=== PATIENT | male | born 1960 | race Caucasian/White ===

== ENCOUNTER 2016-07-08 16:14 | Inpatient (IN) | payer MEDICARE ==
[~2016-07-08] VITALS: Ht 190.5 cm; Wt 184.5 kg
[2016-07-08 16:53] VITALS: Ht 190.5 cm; Wt 184.5 kg
[2016-07-08] MEDS ORDERED: INSU200I SQ (17:06)
[2016-07-08 17:10] VITALS: BP 107/56; RESP 18
--- NOTE | 2016-07-08 19:14 | HP ---
Date/Time of Note Date/Time of Note DATE: 07/08/16 TIME: 19:02 Assessment/Plan VTE Prophylaxis VTE Prophylaxis Intervention: heparin Lines/Catheters IV Catheter Type (from [facility]): Saline Lock Assessment/Plan Problems: (1) Morbid obesity due to excess calories Status: Chronic Comment: Patient has been on and forced weight loss protocol and as he reports he is lost 70 pounds of weight. He had been working out rather extensively which may be how he got a callus on the foot. Regardless we will continue to encourage and assist this rather positive behavior. Please note there is a social issue about finances in this gentleman's family (2) Diabetic foot ulcer associated with type 2 diabetes mellitus Status: Acute Comment: This is an acute finding. Has been seen by Dr. Carrillo and will work toward doing a debridement on the biopsy. We will have ID make sure that we got the correct antibiotics going and get him out of the hospital on an outpatient regimen as soon as possible. Qualifiers: Laterality: right Qualified Code: E11.621 - Diabetic ulcer of right foot associated with type 2 diabetes mellitus (3) End-stage renal disease on hemodialysis Status: Chronic Comment: I have notified his php programmer of his admission so that we do not miss any of the scheduled dates for dialysis (4) DM (diabetes mellitus), type 2 with renal complications Status: Chronic Comment: Noted. The patient has not been able to afford his insulins due to the finances as well as the cost. And then try and work with him using a somewhat antique regimen using plain regular and NPH. Due to the change dynamics of medication digestion and clearance due to the end-stage renal disease I should be able to do this. Please note that the reason I am doing this is strictly on the basis of the finances of him being able to afford this Qualifiers: Diabetes mellitus complication detail: with chronic kidney disease Diabetes mellitus intermediate project manager insulin use: with retirement use Chronic kidney disease stage: on chronic dialysis Qualified Code: E11.22 - Type 2 diabetes mellitus with chronic kidney disease on chronic dialysis, with long-term current use of insulin HPI/ROS Admit Date/Time Admit Date/Time Jul 08, 2016 at 16:25 Hx of Present Illness Charming 56-year-old male patient of Dr. Esparza, with end- stage renal disease on hemodialysis 4 days a week; who developed a foot wound. This had been being treated as an outpatient however it became more worrisome looking and he was seen at the [facility] today. There he had a long sinus tract and because this he is admitted for debridement and excision with possible bone biopsy to rule out osteomyelitis. He did receive a dosage of vancomycin today during dialysis. 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 lives with spouse and 3 children and granddaughter Alcohol Use: none Smoking Status: Never smoker Drug Use: none Exam/Review of Systems Vital Signs Vitals Vital Signs Date Time Temp Pulse Resp B/P Pulse Ox O2 Delivery O2 Flow Rate FiO2 07/08/16 17:10 98.8 82 18 107/56 97 Exam Constitutional: alert, oriented Neck: non-tender, supple Respiratory: clear to auscultation, normal air movement Cardiovascular: nl pulses, regular rate and rhythm Gastrointestinal: nl liver, spleen, non-tender, soft Extremities: normal pulses, other (Wound to the leg) Medications Medications Current Medications Miscellaneous Information (* Miscellaneous Pharmacy Order) HYPOGLYCEMIA PROTOCOL w... ONCE ONCE XX ; Start 07/08/16 at 18:30; Stop 07/08/16 at 18:31; Status UNV Miscellaneous Information (* Miscellaneous Pharmacy Order) Discontinue Glyburide , Glipizide,... ONCE ONCE XX ; Start 07/08/16 at 18:30; Stop 07/08/16 at 18:31 ; Status UNV Miscellaneous Information (* Miscellaneous Pharmacy Order) Discontinue all previ... ONCE ONCE XX ; Start 07/08/16 at 18:30; Stop 07/08/16 at 18:31; Status UNV Diagnostic Test (Pha) (Accucheck) 1 ea XX ; Start 07/09/16 at 02:00; Status UNV Diagnostic Test (Pha) (Accucheck) 1 ea 02 XX ; Start 07/09/16 at 02:00; Status UNV Insulin Human NPH 8 unit 8 unit HS SC ; Start 07/08/16 at 21:00; Status UNV Piperacillin Sod/ Tazobactam Sod (Zosyn 2.25gm/ 50ml (Pmx)) 50 ml @ 100 mls/hr Q8 IVPB ; Start 07/08/16 at 22:00; Status UNV LORIN BARAHONA MD Jul 08, 2016 19:14
[2016-07-08 19:22] LABS: ALBUMIN 4.2 g/dl (3.3-4.9)
[2016-07-08 19:23] LABS: POTASSIUM 4.9 mmol/L (3.5-5.1)
[2016-07-08 19:24] LABS: BASOPHIL # 0.1 10^3/ul (0.0-0.1); BASOPHILS % 0.5 % (0.0-2.0); EOSINOPHILS # 0.1 10^3/ul (0.0-0.5); EOSINOPHILS % 0.7 % (0.0-7.0); HEMATOCRIT 34.7 % (42.0-52.0); HEMOGLOBIN 11.8 g/dl (14.0-18.0); INR 1.1; LYMPHOCYTES # 1.3 10^3/ul (0.8-2.9); LYMPHOCYTES % 10.1 % (15.0-51.0); MEAN CORPUSCULAR HEMOGLOBIN 32.3 pg (29.0-33.0); MEAN CORPUSCULAR HGB CONC 33.9 g/dl (32.0-37.0); MEAN CORPUSCULAR VOLUME 95.2 fl (82.0-101.0); MEAN PLATELET VOLUME 8.6 fl (7.4-10.4); MONOCYTE # 0.8 10^3/ul (0.3-0.9); MONOCYTES % 5.8 % (0.0-11.0); NEUTROPHIL # 11.1 10^3/ul (1.6-7.5); NEUTROPHILS % 82.9 % (39.0-77.0); PLATELET COUNT 259 10^3/UL (140-440); PROTIME 14.2 Sec (12.2-14.2); PT RATIO 1.1; RED BLOOD COUNT 3.65 10^6/ul (4.70-6.10); RED CELL DISTRIBUTION WIDTH 14.4 % (11.5-14.5); UNCORRECTED WBC 13.4 10^3/ul (4.8-10.8); WHITE BLOOD COUNT 13.4 10^3/ul (4.8-10.8)
[2016-07-08 19:25] LABS: CREATININE 6.65 mg/dl (0.61-1.24); PARTIAL THROMBOPLASTIN TIME 29.2 Sec (25.0-35.0)
[2016-07-08 19:26] LABS: ALBUMIN/GLOBULIN RATIO 0.93; TOTAL PROTEIN 8.7 g/dl (6.1-8.1)
[2016-07-08 19:27] LABS: CALCIUM 10.2 mg/dl (8.4-10.2)
[2016-07-08] MEDS ORDERED: GLUCOSE GEL 15 GRAM TUBE BUCCAL PRN (19:30)
[2016-07-08] MEDS ORDERED: GLUCAGON 1 MG INJ IM PRN (19:30)
[2016-07-08] MEDS ORDERED: ACETAMINOPHEN 325 MG TAB PO PRN (19:30)
[2016-07-08] MEDS ORDERED: DOCUSATE SODIUM 100 MG CAP PO PRN (19:30)
[2016-07-08] MEDS ORDERED: GLUCOSE GEL 15 GRAM TUBE PO PRN ×2 (19:30)
[2016-07-08] MEDS ORDERED: DEXTROSE 50% 50 ML SYRINGE IV PRN ×2 (19:30)
[2016-07-08] MEDS ORDERED: NACL 0.9% 3 ML SYG IV SCH (19:30)
[2016-07-08] MEDS ORDERED: HYDROCODONE/APAP (5/325) TAB PO PRN (19:30)
[2016-07-08 19:31] LABS: CONDITION 1
[2016-07-08] MEDS: ACCUCHECK XX SCH (20:05)
[2016-07-08 20:30] VITALS: BP 115/58; PULSE 85; RESP 20
[2016-07-08] MEDS ORDERED: NPH, HUMAN INSULIN ISOPHANE 3ML VIAL SC SCH (21:00)
[2016-07-08] MEDS: FAMOTIDINE 20 MG TAB PO SCH (22:04)
[2016-07-08] MEDS: PIPER-TAZO 2.25 GM (PMX) 50 ML IVPB SCH (22:04)
[2016-07-08] MEDS: HEPARIN 5,000 UNIT/0.5 ML SYG SC SCH (22:06)
[2016-07-08] MEDS: INSULIN ASPART [NOVOLOG] 3 ML PEN SC SCH (22:11)
--- NOTE | 2016-07-08 23:40 | CONS ---
Date/Time of Note Date/Time of Note DATE: 07/08/16 TIME: 23:40 Assessment/Plan Assessment/Plan Problems: (1) Non-pressure chronic ulcer of other part of right foot with necrosis of bone (2) Cellulitis of right foot Status: Acute (3) Diabetes mellitus type 2 in obese Status: Chronic (4) End stage renal disease on dialysis due to type 2 diabetes mellitus Status: Chronic (5) Morbid obesity due to excess calories Status: Chronic (6) History of West Nile virus (WNV) infection Status: Chronic Additional Assessment/Plan Patient will require formal I&D and debridement in the operating room. He will be scheduled for this Wednesday. Will follow. Thank you again for involving me in the care of this patient. If you have any questions regarding this case, please feel free to contact me at pager: or reach me at mobile: [phone]. Consultation Date/Type/Reason Admit Date/Time Jul 08, 2016 at 16:25 Date of Consultation: Jul 08, 2016 Type of Consultation: Foot and ankle surgery Reason for Consultation Infection in the right foot with open wound Hx of Present Illness Thank you very much for involving me in the care of this patient. As you very well know this is a pleasant 56-year-old male patient who has been suffering with infection in his right foot with a chronic open wound that has been treated in the past by his cardiology specialist. His foot doctor referred the patient to the amputation prevention center where he was fully evaluated and was found to have cellulitis of the right foot chronic open wound and possible osteomyelitis. Patient was recommended to be admitted to the hospital for IV antibiotics and surgical management. Patient was admitted to the hospital and I was consulted for evaluation and further care. Patient reports minimal discomfort and pain in the right foot and states that he has neuropathy and most of the time he has no sensation. Patient states that he has been trying to close his wound and has been doing bandages as directed by his foot doctor. Patient denies fever, chills, nausea or vomiting. As per history of present illness. Eyes: no complaints ENT: no complaints Respiratory: no complaints Cardiovascular: no complaints Gastrointestinal: no complaints Genitourinary: no complaints Musculoskeletal: no complaints Skin: no complaints Neurologic: no complaints Lymphatic: no complaints Psychological: nl mood/affect, no complaints Past Medical History As per history of present illness. Medical History: diabetes (Diabetes mellitus type 2), hypertension (Prior hypertension), renal disease (End-stage renal disease on hemodialysis 4 days a week) Past Surgical History As per history of present illness. Past Surgical Hx: other (Status post placement of hemodialysis access) Social History Alcohol Use: none Smoking Status: Never smoker Drug Use: none Exam/Review of Systems Vital Signs Vitals Vital Signs Date Time Temp Pulse Resp B/P Pulse Ox O2 Delivery O2 Flow Rate FiO2 07/08/16 17:10 98.8 82 18 107/56 97 Exam Patient is morbidly obese in no acute distress. Bandages were removed from the right foot. There is bloody drainage noted open wound present at the base of the fifth metatarsal bone laterally. Erythema is significantly reduced since his visit to the clinic. There is decrease in edema of the foot as well. He continues to have necrosis of the skin in the vicinity of the wound. The wound does not probe to bone however the bone is palpable with intact periosteum. There is undermining noted with no underlying fluctuance. Labs and imaging were reviewed. Results Result Diagram: 07/08/16 19007/08/16 190 Results 24 hrs Laboratory Tests Test 07/08/16 17:16 07/08/16 19:00 07/08/16 22:02 Bedside Glucose 120 231 H Activated Partial Thromboplast Time 29.2 Alanine Aminotransferase (ALT/SGPT) 18 Albumin 4.2 Albumin/Globulin Ratio 0.93 Alkaline Phosphatase 101 Anion Gap 22 H Aspartate Amino Transf (AST/SGOT) 14 L Basophils # 0.1 Basophils % 0.5 Blood Urea Nitrogen 42 H C-Reactive Protein 8.0 H Calcium Level 10.2 Carbon Dioxide Level 32 H Chloride Level 89 L Creatinine 6.65 H Direct Bilirubin 0.00 Eosinophils # 0.1 Eosinophils % 0.7 Erythrocyte Sedimentation Rate 101 H Globulin 4.50 H Glucose Level 185 Hematocrit 34.7 L Hemoglobin 11.8 L Hemoglobin A1c 7.7 H INR International Normalized Ratio 1.10 Indirect Bilirubin 0.0 Lymphocytes # 1.3 Lymphocytes % 10.1 L Mean Corpuscular Hemoglobin 32.3 Mean Corpuscular Hemoglobin Concent 33.9 Mean Corpuscular Volume 95.2 Mean Platelet Volume 8.6 Monocytes # 0.8 Monocytes % 5.8 Neutrophils # 11.1 H Neutrophils % 82.9 H Nucleated Red Blood Cells # 0.0 Nucleated Red Blood Cells % 0.0 Platelet Count 259 Potassium Level 4.9 Prothrombin Time 14.2 Prothrombin Time Ratio 1.1 Red Blood Count 3.65 L Red Cell Distribution Width 14.4 Sodium Level 138 Total Bilirubin 0.0 L Total Protein 8.7 H White Blood Count 13.4 H Medications Medications Current Medications Diagnostic Test (Pha) (Accucheck) 1 ea 02 XX ; Start 07/09/16 at 02:00 Insulin Human NPH 8 unit 8 unit HS SC Last administered on 07/08/16 22:07; Admin Dose 8 UNIT; Start 07/08/16 at 21:00 Piperacillin Sod/ Tazobactam Sod (Zosyn 2.25gm/ 50ml (Pmx)) 50 ml @ 100 mls/hr Q8 IVPB Last administered on 07/08/16 22:04; Admin Dose 100 MLS/HR; Start 05/14 at 22:00 Acetaminophen (Tylenol Tab) 650 mg Q6H PRN PO PAIN LEVEL 1-3 OR FEVER; Start at 19:30 Acetaminophen/ Hydrocodone Bitart (Starks (5/325)) 1 tab Q6H PRN PO MODERATE PAIN LEVEL 4-6; Start 07/08/16 at 19:30 Docusate Sodium (Colace) 100 mg Q12H PRN PO CONSTIPATION; Start 07/08/16 at 19: 30 Famotidine (Pepcid) 20 mg Q12 PO Last administered on 07/08/16 22:04; Admin Dose 20 MG; Start 07/08/16 at 21:00 Heparin Sodium (Porcine) (Heparin (5000 Units/0.5 ml)) 5,000 unit Q8 SC Last administered on 07/08/16 22:06; Admin Dose 5,000 UNIT; Start 07/08/16 at 22:00 Miscellaneous Information 1 ea NOTE XX ; Start 07/08/16 at 19:30 Glucose (Glutose) 15 gm Q15M PRN PO DECREASED GLUCOSE; Start 07/08/16 at 19:30 Glucose (Glutose) 22.5 gm Q15M PRN PO DECREASED GLUCOSE; Start 07/08/16 at 19: 30 Dextrose (D50w Syringe) 25 ml Q15M PRN IV DECREASED GLUCOSE; Start 07/08/16 at 19:30 Dextrose (D50w Syringe) 50 ml Q15M PRN IV DECREASED GLUCOSE; Start 07/08/16 at 19:30 Glucagon (Glucagen) 1 mg Q15M PRN IM DECREASED GLUCOSE; Start 07/08/16 at 19:30 Glucose (Glutose) 15 gm Q15M PRN BUCCAL DECREASED GLUCOSE; Start 07/08/16 at 19 :30 TRACEE VASQUEZ DPM Jul 08, 2016 23:40
[2016-07-09] VITALS (9 sets, daily range): BP systolic 105–168; BP diastolic 57–87; PULSE 71–86; RESP 18–20
[2016-07-09] MEDS: ACCUCHECK XX SCH ×4 (02:00→20:05)
[2016-07-09] MEDS ORDERED: ACCUCHECK XX SCH (02:00)
[2016-07-09] MEDS: PIPER-TAZO 2.25 GM (PMX) 50 ML IVPB SCH ×3 (06:33→21:13)
[2016-07-09] MEDS: HEPARIN 5,000 UNIT/0.5 ML SYG SC SCH ×3 (06:35→21:03)
[2016-07-09 07:28] LABS: BASOPHILS % 0.1 % (0.0-2.0); EOSINOPHILS # 0.1 10^3/ul (0.0-0.5); EOSINOPHILS % 1.1 % (0.0-7.0); HEMATOCRIT 31.3 % (42.0-52.0); HEMOGLOBIN 10.6 g/dl (14.0-18.0); LYMPHOCYTES # 1.7 10^3/ul (0.8-2.9); LYMPHOCYTES % 13.2 % (15.0-51.0); MEAN CORPUSCULAR HEMOGLOBIN 32.1 pg (29.0-33.0); MEAN CORPUSCULAR HGB CONC 33.9 g/dl (32.0-37.0); MEAN CORPUSCULAR VOLUME 94.9 fl (82.0-101.0); MEAN PLATELET VOLUME 8.6 fl (7.4-10.4); MONOCYTE # 1.1 10^3/ul (0.3-0.9); MONOCYTES % 8.7 % (0.0-11.0); NEUTROPHIL # 9.9 10^3/ul (1.6-7.5); NEUTROPHILS % 76.9 % (39.0-77.0); PLATELET COUNT 234 10^3/UL (140-440); RED CELL DISTRIBUTION WIDTH 14.2 % (11.5-14.5); UNCORRECTED WBC 12.9 10^3/ul (4.8-10.8); WHITE BLOOD COUNT 12.9 10^3/ul (4.8-10.8)
[2016-07-09 07:37] LABS: CONDITION 1
--- NOTE | 2016-07-09 08:07 | RADRPT ---
PROCEDURE: XR Foot. CLINICAL INDICATION: Cellulitis TECHNIQUE: AP, lateral and oblique views of the right foot was obtained. COMPARISON: None. FINDINGS: There is soft tissue changes involving the right lateral mid foot which may represent ulceration or small woman. Recommend clinical correlation. No underlying foreign body. Soft tissue edema is see n along the right lateral foot which may represent cellulitis. There are no acute fractures or disl ocations. There is degenerative changes of the right tarsal-metatarsal joints. Note that there is ill-defined regions of demineralization involving the proximal aspects of the right second and third metatarsal bone and right second and third cuneiforms and distal right cuboid bone uncertain as arely ology of this finding and may represent previous trauma however osteomyelitis cannot be excluded. A n MRI of the right foot is suggested for further evaluation if clinically indicated. No other evide nce of focal bony blastic or lytic lesions or erosions. There are right calcaneal spurs present. IMPRESSION: 1. Soft tissue change involving the lateral right mid foot consistent with ulcerations/wound. Opal cent right lateral foot soft tissue swelling may represent cellulitis. 2. Degenerative change of the right tarsal metatarsal joints. There are ill-defined regions of dem ineralization involving the proximal aspects of the right second and third metatarsal bones and righ t second and third cuneiforms and distal right cuboid bone uncertain etiology but may represent mining manager clint change and evidence of previous trauma however osteomyelitis cannot be excluded. MRI of the righ t foot with contrast may be helpful for further evaluation. RPTAT:AAJJ Physician Charles Date Time Electronically viewed and signed by Physician Charles on 07/09/2016 08:07 /
--- NOTE | 2016-07-09 08:09 | RADRPT ---
PROCEDURE: XR Chest. CLINICAL INDICATION: cellulitis TECHNIQUE: PA and lateral views of the chest were obtained COMPARISON: None FINDINGS: There are no old studies available comparison. There is increased density at the left base more pro minent on frontal imaging which may all be due to a combination of technique and atelectasis the lef t lower lobe infiltrate should be excluded. Tiny left pleural effusion cannot be excluded. Remainde r left lung is clear. The right lung is clear. There is no ounce bypass congestion right pleural e ffusion and pneumothorax. The heart is upper limits of normal in size. Spinous congestion. IMPRESSION: 1. Increased density at the left base as described above may be due to a combination of technique a nd atelectasis the left lower lobe infiltrate should be considered. 2. A tiny left pleural effusion cannot be excluded. 3. No evidence congestive heart failure or pneumothorax. RPTAT:AAJJ Physician Charles Date Time Electronically viewed and signed by Candi Mann Physician on 07/09/2016 08:09 BM/
[2016-07-09] MEDS: CALCIUM CARBONATE 750 MG CHEW TAB PO SCH ×3 (08:19→17:21)
[2016-07-09] MEDS: FAMOTIDINE 20 MG TAB PO SCH ×2 (08:19→21:02)
[2016-07-09] MEDS: COLLAGENASE 30 GM TUBE TOP SCH (08:20)
[2016-07-09] MEDS: INSULIN ASPART [NOVOLOG] 3 ML PEN SC SCH ×7 (08:21→21:12)
--- NOTE | 2016-07-09 10:24 | RADRPT ---
PROCEDURE: US bilateral lower extremity arteries. CLINICAL INDICATION: Bilateral leg pain. Claudication that interferes significantly with the nicole ent's lifestyle. TECHNIQUE: Multiple longitudinal and transverse images of the bilateral lower extremity arteries w ere obtained with osullivan scale, pulsed Doppler, and color Doppler imaging. COMPARISON: No prior studies are available for comparison. FINDINGS: Right FUNERAL LIMOUSINE DRIVER:126 cm/sec PSFA:115 cm/sec MSFA:111 cm/sec DSFA:102 cm/sec POP:98 cm/sec DESIGN SPECIALIST:154 cm/sec DPA:171 cm/sec Left FUNERAL LIMOUSINE DRIVER:132 cm/sec PSFA:123 cm/sec MSFA:129 cm/sec DSFA:84 cm/sec POP:98 cm/sec DESIGN SPECIALIST:91 cm/sec DPA:110 cm/sec The right ankle-brachial index is 1.2 and the left ankle-brachial index is 1.6. There is normal triphasic or biphasic flow throughout bilaterally. There is no plaque, stenosis, or occlusion. IMPRESSION: 1. Normal bilateral lower extremity arterial Doppler. RPTAT: QQ .Yannick Cavazos MD, Date Time Electronically viewed and signed by .Yannick Cavazos MD, on 07/09/2016 10:23 .R/
--- NOTE | 2016-07-09 11:02 | RADRPT ---
Vent Rate: 90 bpm RR Interval: 0 msec [place] Interval: 222 msec QRS Duration: 82 msec QT Interval: 360 msec QTC Interval: 440 msec P-R-T Hoven: 53 - 83 - 56 degrees Sinus rhythm with 1st degree AV block Low voltage QRS Cannot rule out Anterior infarct , age undetermined Abnormal ECG Electronically Signed By: Burton Peralta [id number]
--- NOTE | 2016-07-09 16:38 | CONS ---
DATE OF ADMISSION: 07/08/2016 DATE OF CONSULTATION: 07/09/2016 TYPE OF CONSULTATION: Infectious Disease. REASON FOR CONSULTATION: Antibiotic management. HISTORY OF PRESENT ILLNESS: Horacio Jewell is a very pleasant 56-year-old white male patient of with numerous problems including end-stage renal disease on hemodialysis 4 days a week. The patient developed a foot wound. He was treated as an outpatient, but it became worse. He was seen in the [facility] on the . He has had a long sinus tract. Because of that he is admitted for de bridement and excision and possible bone biopsy to rule out osteomyelitis. He received a dose of va ncomycin during dialysis on the . Patient has a number of problems includin. Morbid obesity. 2. Diabetic foot ulcer with type 2 diabetes. 3. End-stage renal disease on hemodialysis. 4. Peripheral vascular disease. PAST MEDICAL HISTORY: Operations as outlined. FAMILY HISTORY: Noncontributory. SOCIAL HISTORY: Does not smoke, drink or abuse drugs. ALLERGIES: NONE TO PENICILLIN, SULFA OR FOODS. MEDICATIONS: Per chart. REVIEW OF SYSTEMS: As per HPI. PHYSICAL EXAMINATION: GENERAL: The patient is a well-developed, well-nourished male who is alert, responsive, in no acute distress. VITAL SIGNS: Stable. He is afebrile. SKIN: Without generalized rash. HEENT: Within normal limits. NECK: Supple. LYMPH NODES: None palpable. CHEST: Decreased breath sounds at the bases. HEART: Without murmur or gallop. ABDOMEN: Soft, nontender, without organosplenomegaly or masses. EXTREMITIES: Without cyanosis, clubbing, or edema. IMPRESSION AND PLAN: He obviously has a nonpressured chronic ulcer and cellulitis of his right foot . He also has a history of West Nile virus infection which is chronic at this point. The patient wi ll require formal I and D and debridement in the operating room, according to Dr. Carrillo. He was sta rted on vancomycin and he is also on Zosyn. I concur with this regimen. I will dictate my findings to Dr. Garcia and to Dr. Carrillo. Dictated By: AMBERLY TELLO MD, JD/JESSIE Conf#: [id number] DID#: [id number]
--- NOTE | 2016-07-09 16:56 | CONS ---
Date/Time of Note Date/Time of Note DATE: 07/09/16 TIME: 16:51 Assessment/Plan Assessment/Plan Chief Complaint/Hosp Course - ESRD Hemodialysis dependent - Diabetes - Hypertension - Hx of excessive fluid gains in between dialysis - Anemia of Chronic disease - Hyperphosphatemia PLAN: He is on dialysis 4 times a week due to borderline clearance & excessive fluid intake Will plan for Dialysis today Monitor Electrolytes I did give him 750 Mg of Vancomycin on dialysis on Wednesday due to worsening of the erythema on his legs Will follow up with ID recommendation Follow up with PHOS levels THANK YOU Enrique EDWARD Problems: Consultation Date/Type/Reason Admit Date/Time Jul 08, 2016 at 16:25 Date of Consultation: Jul 09, 2016 Type of Consultation: NEPHROLOGY Reason for Consultation ESRD on Hemodialysis @ [facility] Constitutional: no complaints Eyes: no complaints ENT: no complaints Respiratory: no complaints Cardiovascular: no complaints Gastrointestinal: no complaints Genitourinary: no complaints Musculoskeletal: no complaints Skin: no complaints Neurologic: no complaints Lymphatic: no complaints Psychological: nl mood/affect, no complaints Past Medical History ESRD on Dialysis Anemia DM DM neuropathy Hypertension Hyperphosphatemia Medical History: diabetes (Diabetes mellitus type 2), hypertension (Prior hypertension), renal disease (End-stage renal disease on hemodialysis 4 days a week) Past Surgical History AVF Past Surgical Hx: other (Status post placement of hemodialysis access) Family History Significant Family History: no pertinent family hx Social History Alcohol Use: none Smoking Status: Former smoker Drug Use: none Exam/Review of Systems Vital Signs Vitals Vital Signs Date Time Temp Pulse Resp B/P Pulse Ox O2 Delivery O2 Flow Rate FiO2 07/09/16 16:45 81 19 07/09/16 07:23 97.7 105/57 98 07/08/16 20:30 Room Air Intake and Output 07/08/16 07/08/16 07/09/16 15:00 23:00 07:00 Intake Total 50 ml 200 ml Output Total 4500 ml Balance 50 ml -4300 ml Exam Constitutional: alert, oriented Psych: no complaints Head: normocephalic Eyes: nl conjunctiva ENMT: nl external ears & nose Neck: supple Respiratory: crackles/rales Cardiovascular: regular rate and rhythm, systolic murmur Gastrointestinal: soft Results Result Diagram: 07/09/16 0539 07/08/16 1900 Results 24 hrs Laboratory Tests Test 07/08/16 17:16 07/08/16 19:00 07/08/16 22:02 07/09/16 01:58 Bedside Glucose 120 231 H 227 H Activated Partial Thromboplast Time 29.2 Alanine Aminotransferase (ALT/SGPT) 18 Albumin 4.2 Albumin/Globulin Ratio 0.93 Alkaline Phosphatase 101 Anion Gap 22 H Aspartate Amino Transf (AST/SGOT) 14 L Basophils # 0.1 Basophils % 0.5 Blood Urea Nitrogen 42 H C-Reactive Protein 8.0 H Calcium Level 10.2 Carbon Dioxide Level 32 H Chloride Level 89 L Creatinine 6.65 H Direct Bilirubin 0.00 Eosinophils # 0.1 Eosinophils % 0.7 Erythrocyte Sedimentation Rate 101 H Globulin 4.50 H Glucose Level 185 Hematocrit 34.7 L Hemoglobin 11.8 L Hemoglobin A1c 7.7 H INR International Normalized Ratio 1.10 Indirect Bilirubin 0.0 Lymphocytes # 1.3 Lymphocytes % 10.1 L Mean Corpuscular Hemoglobin 32.3 Mean Corpuscular Hemoglobin Concent 33.9 Mean Corpuscular Volume 95.2 Mean Platelet Volume 8.6 Monocytes # 0.8 Monocytes % 5.8 Neutrophils # 11.1 H Neutrophils % 82.9 H Nucleated Red Blood Cells # 0.0 Nucleated Red Blood Cells % 0.0 Platelet Count 259 Potassium Level 4.9 Prothrombin Time 14.2 Prothrombin Time Ratio 1.1 Red Blood Count 3.65 L Red Cell Distribution Width 14.4 Sodium Level 138 Total Bilirubin 0.0 L Total Protein 8.7 H White Blood Count 13.4 H Test 07/09/16 05:39 07/09/16 07:41 07/09/16 10:53 07/09/16 12:03 Basophils # 0.0 Basophils % 0.1 Eosinophils # 0.1 Eosinophils % 1.1 Hematocrit 31.3 L Hemoglobin 10.6 L Lymphocytes # 1.7 Lymphocytes % 13.2 L Mean Corpuscular Hemoglobin 32.1 Mean Corpuscular Hemoglobin Concent 33.9 Mean Corpuscular Volume 94.9 Mean Platelet Volume 8.6 Monocytes # 1.1 H Monocytes % 8.7 Neutrophils # 9.9 H Neutrophils % 76.9 Nucleated Red Blood Cells # 0.0 Nucleated Red Blood Cells % 0.0 Platelet Count 234 Red Blood Count 3.30 L Red Cell Distribution Width 14.2 Thyroid Stimulating Hormone (TSH) 2.380 White Blood Count 12.9 H Bedside Glucose 186 266 H 298 H Test 07/09/16 14:31 Bedside Glucose 245 H Medications Medications Current Medications Diagnostic Test (Pha) (Accucheck) 1 ea 02 XX ; Start 07/09/16 at 02:00 Insulin Human NPH 8 unit 8 unit HS SC Last administered on 07/08/16 22:07; Admin Dose 8 UNIT; Start 07/08/16 at 21:00 Piperacillin Sod/ Tazobactam Sod (Zosyn 2.25gm/ 50ml (Pmx)) 50 ml @ 100 mls/hr Q8 IVPB Last administered on 07/09/16 06:33; Admin Dose 100 MLS/HR; Start 05/14 at 22:00 Acetaminophen (Tylenol Tab) 650 mg Q6H PRN PO PAIN LEVEL 1-3 OR FEVER; Start at 19:30 Acetaminophen/ Hydrocodone Bitart ([place] (5/325)) 1 tab Q6H PRN PO MODERATE PAIN LEVEL 4-6; Start 07/08/16 at 19:30 Docusate Sodium (Colace) 100 mg Q12H PRN PO CONSTIPATION; Start 07/08/16 at 19: 30 Famotidine (Pepcid) 20 mg Q12 PO Last administered on 07/09/16 08:19; Admin Dose 20 MG; Start 07/08/16 at 21:00 Heparin Sodium (Porcine) (Heparin (5000 Units/0.5 ml)) 5,000 unit Q8 SC Last administered on 07/09/16 06:35; Admin Dose 5,000 UNIT; Start 07/08/16 at 22:00 Miscellaneous Information 1 ea NOTE XX ; Start 07/08/16 at 19:30 Glucose (Glutose) 15 gm Q15M PRN PO DECREASED GLUCOSE; Start 07/08/16 at 19:30 Glucose (Glutose) 22.5 gm Q15M PRN PO DECREASED GLUCOSE; Start 07/08/16 at 19: 30 Dextrose (D50w Syringe) 25 ml Q15M PRN IV DECREASED GLUCOSE; Start 07/08/16 at 19:30 Dextrose (D50w Syringe) 50 ml Q15M PRN IV DECREASED GLUCOSE; Start 07/08/16 at 19:30 Glucagon (Glucagen) 1 mg Q15M PRN IM DECREASED GLUCOSE; Start 07/08/16 at 19:30 Glucose (Glutose) 15 gm Q15M PRN BUCCAL DECREASED GLUCOSE; Start 07/08/16 at 19 :30 Collagenase (Santyl) 1 applic DAILY TOP ; Start 07/09/16 at 09:00 REED FERRELL MD Jul 09, 2016 16:56
--- NOTE | 2016-07-09 19:57 | PN ---
Date/Time of Note Date/Time of Note DATE: 07/09/16 TIME: 19:54 Assessment/Plan VTE Prophylaxis VTE Prophylaxis Intervention: heparin Lines/Catheters [facility] Saline Lock Urinary Cath still in place: No Assessment/Plan Problems: (1) Diabetic foot ulcer associated with type 2 diabetes mellitus Status: Acute Comment: He is improving with antibiotics. Given the elevation in his sedimentation rates I am concerned about this I am informed by Dr. Carrillo plans to take him for debridement in 48 hours. We will continue on antibiotics and wound treatment. Otherwise he is medically stable for the procedure and could actually go tonight if that was appropriate Qualifiers: Laterality: right Qualified Code: E11.621 - Diabetic ulcer of right foot associated with type 2 diabetes mellitus (2) End-stage renal disease on hemodialysis Status: Chronic Comment: Nephrology is assisting with this and maintaining the patient on his dialysis regimen. Please note the usage of phosphate binders in this gentleman has been limited by finances. I may have found a way to get PhosLo and therefore I will be using PhosLo 2 work as a phosphate binder. (3) Cellulitis of right foot Comment: On antibiotics Subjective 24 Hr Interval Summary Free Text/Dictation Patient reports he is concerned about losing his foot. Constitutional: no complaints (No fevers chills or sweats) Respiratory: no complaints Cardiovascular: no complaints Gastrointestinal: no complaints Exam/Review of Systems Vital Signs Vitals Vital Signs Date Time Temp Pulse Resp B/P Pulse Ox O2 Delivery O2 Flow Rate FiO2 07/09/16 16:45 81 19 07/09/16 07:23 97.7 105/57 98 07/08/16 20:30 Room Air Intake and Output 07/08/16 07/08/16 07/09/16 15:00 23:00 07:00 Intake Total 50 ml 200 ml Output Total 4500 ml Balance 50 ml -4300 ml Exam Constitutional: alert, oriented Neck: non-tender, supple Respiratory: clear to auscultation, normal air movement Cardiovascular: nl pulses, regular rate and rhythm Gastrointestinal: nl liver, spleen, soft Extremities: other (Less redness and erythema of the right foot.) Results Result Diagram: 07/09/16 0539 07/08/16 1900 Results 24 hrs Laboratory Tests Test 07/08/16 22:02 07/09/16 01:58 07/09/16 05:39 07/09/16 07:41 Bedside Glucose 231 H 227 H 186 Basophils # 0.0 Basophils % 0.1 Eosinophils # 0.1 Eosinophils % 1.1 Hematocrit 31.3 L Hemoglobin 10.6 L Lymphocytes # 1.7 Lymphocytes % 13.2 L Mean Corpuscular Hemoglobin 32.1 Mean Corpuscular Hemoglobin Concent 33.9 Mean Corpuscular Volume 94.9 Mean Platelet Volume 8.6 Monocytes # 1.1 H Monocytes % 8.7 Neutrophils # 9.9 H Neutrophils % 76.9 Nucleated Red Blood Cells # 0.0 Nucleated Red Blood Cells % 0.0 Platelet Count 234 Red Blood Count 3.30 L Red Cell Distribution Width 14.2 Thyroid Stimulating Hormone (TSH) 2.380 White Blood Count 12.9 H Test 07/09/16 10:53 07/09/16 12:03 07/09/16 14:31 07/09/16 17:16 Bedside Glucose 266 H 298 H 245 H 163 Medications Medications Current Medications Diagnostic Test (Pha) (Accucheck) 02 XX ; Start 07/09/16 at 02:00 Insulin Human NPH 8 unit 8 unit HS SC Last administered on 07/08/16 22:07; Admin Dose 8 UNIT; Start 07/08/16 at 21:00 Piperacillin Sod/ Tazobactam Sod (Zosyn 2.25gm/ 50ml (Pmx)) 50 ml @ 100 mls/hr Q8 IVPB Last administered on 07/09/16 17:18; Admin Dose 100 MLS/HR; Start 05/14 at 22:00 Acetaminophen (Tylenol Tab) 650 mg Q6H PRN PO PAIN LEVEL 1-3 OR FEVER; Start at 19:30 Acetaminophen/ Hydrocodone Bitart ([place] (5/325)) 1 tab Q6H PRN PO MODERATE PAIN LEVEL 4-6; Start 07/08/16 at 19:30 Docusate Sodium (Colace) 100 mg Q12H PRN PO CONSTIPATION; Start 07/08/16 at 19: 30 Famotidine (Pepcid) 20 mg Q12 PO Last administered on 07/09/16 08:19; Admin Dose 20 MG; Start 07/08/16 at 21:00 Heparin Sodium (Porcine) (Heparin (5000 Units/0.5 ml)) 5,000 unit Q8 SC Last administered on 07/09/16t 06:35; Admin Dose 5,000 UNIT; Start 07/08/16 at 22:00 Miscellaneous Information 1 ea NOTE XX ; Start 07/08/16 at 19:30 Glucose (Glutose) 15 gm Q15M PRN PO DECREASED GLUCOSE; Start 07/08/16 at 19:30 Glucose (Glutose) 22.5 gm Q15M PRN PO DECREASED GLUCOSE; Start 07/08/16 at 19: 30 Dextrose (D50w Syringe) 25 ml Q15M PRN IV DECREASED GLUCOSE; Start 07/08/16 at 19:30 Dextrose (D50w Syringe) 50 ml Q15M PRN IV DECREASED GLUCOSE; Start 07/08/16 at 19:30 Glucagon (Glucagen) 1 mg Q15M PRN IM DECREASED GLUCOSE; Start 07/08/16 at 19:30 Glucose (Glutose) 15 gm Q15M PRN BUCCAL DECREASED GLUCOSE; Start 07/08/16 at 19 :30 Collagenase (Santyl) 1 applic DAILY TOP ; Start 07/09/16 at 09:00 LORIN BARAHONA MD Jul 09, 2016 19:57
[2016-07-09] MEDS ORDERED: NPH, HUMAN INSULIN ISOPHANE 3ML VIAL SC SCH (21:00)
[2016-07-10] VITALS (9 sets, daily range): BP systolic 110–141; BP diastolic 50–69; PULSE 77–93; RESP 20
[2016-07-10] MEDS: ACCUCHECK XX SCH ×4 (02:00→20:05)
[2016-07-10] MEDS: PIPER-TAZO 2.25 GM (PMX) 50 ML IVPB SCH ×2 (06:17→13:07)
[2016-07-10] MEDS: HEPARIN 5,000 UNIT/0.5 ML SYG SC SCH ×3 (06:21→22:58)
[2016-07-10 07:04] LABS: POTASSIUM 4.7 mmol/L (3.5-5.1)
[2016-07-10 07:07] LABS: CREATININE 7.01 mg/dl (0.61-1.24)
[2016-07-10 07:08] LABS: CALCIUM 9.3 mg/dl (8.4-10.2)
[2016-07-10] MEDS ORDERED: INSULIN ASPART [NOVOLOG] 3 ML PEN SC SCH (07:30)
[2016-07-10] MEDS: CALCIUM CARBONATE 750 MG CHEW TAB PO SCH ×3 (08:33→17:34)
[2016-07-10] MEDS: COLLAGENASE 30 GM TUBE TOP SCH (08:33)
[2016-07-10] MEDS: FAMOTIDINE 20 MG TAB PO SCH ×2 (08:33→21:25)
[2016-07-10] MEDS: CALCIUM ACETATE 667 MG CAP PO SCH ×3 (08:33→17:34)
[2016-07-10] MEDS: INSULIN ASPART [NOVOLOG] 3 ML PEN SC SCH ×6 (08:37→21:29)
--- NOTE | 2016-07-10 08:40 | PN ---
Date/Time of Note Date/Time of Note DATE: 07/10/16 TIME: 08:39 Assessment/Plan VTE Prophylaxis VTE Prophylaxis Intervention: heparin Lines/Catheters [facility] Saline Lock Urinary Cath still in place: No Assessment/Plan Problems: (1) End stage renal disease on dialysis due to type 2 diabetes mellitus Status: Chronic Comment: He remains on hemodialysis as per nephrology in a stable fashion. We are using PhosLo for his phosphate binding and will follow his serum phosphorus levels and titrate. Please see my prior notes he had significant financial difficulties affording the other phosphate binding resins we will attempt our best to help him out when he discharge (2) Diabetes mellitus type 2 in obese Status: Chronic Comment: Adjusting insulin for better control (3) Diabetic foot ulcer associated with type 2 diabetes mellitus Status: Acute Comment: As per APC and DP Qualifiers: Laterality: right Qualified Code: E11.621 - Diabetic ulcer of right foot associated with type 2 diabetes mellitus Subjective 24 Hr Interval Summary Constitutional: no complaints Respiratory: no complaints Cardiovascular: no complaints Gastrointestinal: no complaints Genitourinary: no complaints Exam/Review of Systems Vital Signs Vitals Vital Signs Date Time Temp Pulse Resp B/P Pulse Ox O2 Delivery O2 Flow Rate FiO2 07/09/16 20:00 98.3 85 20 108/62 97 07/08/16 20:30 Room Air Intake and Output 07/09/16 07/09/16 07/10/16 15:00 23:00 07:00 Intake Total 1390 ml 250 ml Output Total 2000 ml 0 ml Balance -610 ml 250 ml Exam Constitutional: alert, oriented Respiratory: clear to auscultation, normal air movement Cardiovascular: nl pulses, regular rate and rhythm Gastrointestinal: nl liver, spleen, non-tender, soft Extremities: other Results Result Diagram: 07/09/16 0539 07/10/16 0435 Results 24 hrs Laboratory Tests Test 07/09/16 10:53 07/09/16 12:03 07/09/16 14:31 07/09/16 17:16 Bedside Glucose 266 H 298 H 245 H 163 Test 07/09/16 20:14 07/10/16 02:07 07/10/16 04:35 07/10/16 08:05 Bedside Glucose 216 214 214 Anion Gap 18 H Blood Urea Nitrogen 41 H Calcium Level 9.3 Carbon Dioxide Level 33 H Chloride Level 93 L Creatinine 7.01 H Glucose Level 206 Phosphorus Level 5.9 H Potassium Level 4.7 Sodium Level 139 Medications Medications Current Medications Diagnostic Test (Pha) 1 ea 1 ea 02 XX ; Start 07/09/16 at 02:00 Piperacillin Sod/ Tazobactam Sod (Zosyn 2.25gm/ 50ml (Pmx)) 50 ml @ 100 mls/hr Q8 IVPB Last administered on 07/10/16 06:17; Admin Dose 100 MLS/HR; Start 05/14 at 22:00 Acetaminophen (Tylenol Tab) 650 mg Q6H PRN PO PAIN LEVEL 1-3 OR FEVER; Start at 19:30 Acetaminophen/ Hydrocodone Bitart ([place] (5/325)) 1 tab Q6H PRN PO MODERATE PAIN LEVEL 4-6; Start 07/08/16 at 19:30 Docusate Sodium (Colace) 100 mg Q12H PRN PO CONSTIPATION; Start 07/08/16 at 19: 30 Famotidine (Pepcid) 20 mg Q12 PO Last administered on 07/09/16 21:02; Admin Dose 20 MG; Start 07/08/16 at 21:00 Heparin Sodium (Porcine) (Heparin (5000 Units/0.5 ml)) 5,000 unit Q8 SC Last administered on 07/10/16 06:21; Admin Dose 5,000 UNIT; Start 07/08/16 at 22:00 Miscellaneous Information 1 ea NOTE XX ; Start 07/08/16 at 19:30 Glucose (Glutose) 15 gm Q15M PRN PO DECREASED GLUCOSE; Start 07/08/16 at 19:30 Glucose (Glutose) 22.5 gm Q15M PRN PO DECREASED GLUCOSE; Start 07/08/16 at 19: 30 Dextrose (D50w Syringe) 25 ml Q15M PRN IV DECREASED GLUCOSE; Start 07/08/16 at 19:30 Dextrose (D50w Syringe) 50 ml Q15M PRN IV DECREASED GLUCOSE; Start 07/08/16 at 19:30 Glucagon (Glucagen) 1 mg Q15M PRN IM DECREASED GLUCOSE; Start 07/08/16 at 19:30 Glucose (Glutose) 15 gm Q15M PRN BUCCAL DECREASED GLUCOSE; Start 07/08/16 at 19 :30 Collagenase (Santyl) 1 applic DAILY TOP ; Start 07/09/16 at 09:00 Insulin Human NPH (Humulin N) 10 unit HS SC Last administered on 07/09/16t 21: 07; Admin Dose 10 UNIT; Start 07/09/16 at 21:00 LORIN BARAHONA MD Jul 10, 2016 08:40
--- NOTE | 2016-07-10 09:16 | CONS ---
Date/Time of Note Date/Time of Note DATE: 07/10/16 TIME: 09:10 Assessment/Plan Assessment/Plan Chief Complaint/Hosp Course - ESRD Hemodialysis dependent - Diabetes - Hypertension - Hx of excessive fluid gains in between dialysis - Anemia of Chronic disease - Hyperphosphatemia PLAN: He is on dialysis 4 times a week due to borderline clearance & excessive fluid intake Had Dialysis yesterday Will plan for another dialysis today so his volume status & Potassium would be stable for planned surgery tomorrow Monitor Electrolytes Antibiotics per ID THANK YOU V. MUCH Problems: Consultation Date/Type/Reason Admit Date/Time Jul 08, 2016 at 16:25 Initial Consult Date 07/09/16 Type of Consultation: NEPHROLOGY Reason for Consultation ESRD on Hemodialysis 24 HR Interval Summary Constitutional: no complaints Exam/Review of Systems Vital Signs Vitals Vital Signs Date Time Temp Pulse Resp B/P Pulse Ox O2 Delivery O2 Flow Rate FiO2 07/10/16 08:32 98.1 73 20 114/56 98 07/08/16 20:30 Room Air Intake and Output 07/09/16 07/09/16 07/10/16 15:00 23:00 07:00 Intake Total 1390 ml 250 ml Output Total 2000 ml 0 ml Balance -610 ml 250 ml Exam Constitutional: alert, oriented Psych: no complaints Head: normocephalic Eyes: nl conjunctiva ENMT: nl external ears & nose Neck: supple Respiratory: crackles/rales Cardiovascular: regular rate and rhythm, systolic murmur Gastrointestinal: soft Extremities: normal pulses Results Result Diagram: 07/09/16 0539 07/10/16 0435 Results 24 hrs Laboratory Tests Test 07/09/16 10:53 07/09/16 12:03 07/09/16 14:31 07/09/16 17:16 Bedside Glucose 266 H 298 H 245 H 163 Test 07/09/16 20:14 07/10/16 02:07 07/10/16 04:35 07/10/16 08:05 Bedside Glucose 216 214 214 Anion Gap 18 H Blood Urea Nitrogen 41 H Calcium Level 9.3 Carbon Dioxide Level 33 H Chloride Level 93 L Creatinine 7.01 H Glucose Level 206 Phosphorus Level 5.9 H Potassium Level 4.7 Sodium Level 139 Medications Medications Current Medications Diagnostic Test (Pha) 1 ea ea XX ; Start 07/09/16 at 02:00 Piperacillin Sod/ Tazobactam Sod (Zosyn 2.25gm/ 50ml (Pmx)) 50 ml @ 100 mls/hr Q8 IVPB Last administered on 07/10/16 06:17; Admin Dose 100 MLS/HR; Start 05/14 at 22:00 Acetaminophen (Tylenol Tab) 650 mg Q6H PRN PO PAIN LEVEL 1-3 OR FEVER; Start at 19:30 Acetaminophen/ Hydrocodone Bitart ([place] (5/325)) 1 tab Q6H PRN PO MODERATE PAIN LEVEL 4-6; Start 07/08/16 at 19:30 Docusate Sodium (Colace) 100 mg Q12H PRN PO CONSTIPATION; Start 07/08/16 at 19: 30 Famotidine (Pepcid) 20 mg Q12 PO Last administered on 07/10/16 08:33; Admin Dose 20 MG; Start 07/08/16 at 21:00 Heparin Sodium (Porcine) (Heparin (5000 Units/0.5 ml)) 5,000 unit Q8 SC Last administered on 07/10/16 06:21; Admin Dose 5,000 UNIT; Start 07/08/16 at 22:00 Miscellaneous Information 1 ea NOTE XX ; Start 07/08/16 at 19:30 Glucose (Glutose) 15 gm Q15M PRN PO DECREASED GLUCOSE; Start 07/08/16 at 19:30 Glucose (Glutose) 22.5 gm Q15M PRN PO DECREASED GLUCOSE; Start 07/08/16 at 19: 30 Dextrose (D50w Syringe) 25 ml Q15M PRN IV DECREASED GLUCOSE; Start 07/08/16 at 19:30 Dextrose (D50w Syringe) 50 ml Q15M PRN IV DECREASED GLUCOSE; Start 07/08/16 at 19:30 Glucagon (Glucagen) 1 mg Q15M PRN IM DECREASED GLUCOSE; Start 07/08/16 at 19:30 Glucose (Glutose) 15 gm Q15M PRN BUCCAL DECREASED GLUCOSE; Start 07/08/16 at 19 :30 Collagenase (Santyl) 1 applic DAILY TOP Last administered on 07/10/16 08:33; Admin Dose 1 APPLIC; Start 07/09/16 at 09:00 Insulin Human NPH (Humulin N) 14 unit HS SC ; Start 07/10/16 at 21:00 REED FERRELL MD Jul 10, 2016 09:15
[2016-07-10] MEDS ORDERED: VANCOMYCIN IV PER PHARMACY XX SCH (13:00)
--- NOTE | 2016-07-10 15:02 | PN ---
DATE: 07/10/2016 INFECTIOUS DISEASE PROGRESS NOTE SUBJECTIVE: No acute changes overnight. The patient is alert, feels good, looks comfortable, no fe vers. MICROBIOLOGY: Blood cultures negative. ANTIMICROBIALS: He is on Zosyn. DIAGNOSTICS: X-ray of the foot revealed cellulitis, questionable osteomyelitis. Arterial study was normal. Chest x-ray revealed density at the left base that could be a combination of atelectasis o f the left lower lobe with a tiny left pleural effusion, no evidence of CHF. PHYSICAL EXAMINATION: GENERAL: This is a morbidly obese, middle-aged white man who is awake, in no distress. HEENT: Head atraumatic, normocephalic. Sclerae anicteric. Buccal mucosa dry. NECK: Obese, trachea midline. CHEST: Rise symmetrical. Breath sounds diminished to bases. HEART: S1, S2. ABDOMEN: Soft. Bowel sounds present. EXTREMITIES: With right lower extremity dressing intact. ASSESSMENT: 1. Right lower extremity acute on chronic cellulitis with diabetic ulceration, rule out osteomyelit is. 2. Diabetes. 3. End-stage renal disease, hemodialysis dependent. 4. History of West Nile virus. PLAN: The patient remains stable. Apparently vancomycin is not on his medication profile, and we w ill start him on vancomycin. We will also consider MRI of his right foot to rule out osteomyelitis. The patient is being followed by podiatry, nephrology, and endocrinology. We will follow their re commendations. Dictated By: JAYANT HENSON [facility]ESS[facility] Conf#: [id number] DID#: [id number]
[2016-07-10] MEDS ORDERED: VANCOMYCIN 2 GM in SOD CHLORIDE 0.9% 500 ML IVPB SCH (16:30)
[2016-07-10] MEDS: VANCOMYCIN 1.5 GM in SOD CHLORIDE 0.9% 250 ML IVPB SCH ×2 (18:02→22:54)
[2016-07-10] MEDS ORDERED: NPH, HUMAN INSULIN ISOPHANE 3ML VIAL SC SCH (21:00)
[2016-07-11] MEDS: ACCUCHECK XX SCH ×4 (02:23→20:05)
[2016-07-11] MEDS: PIPER-TAZO 2.25 GM (PMX) 50 ML IVPB SCH ×4 (02:40→21:07)
[2016-07-11] MEDS: HEPARIN 5,000 UNIT/0.5 ML SYG SC SCH ×3 (05:37→21:06)
[2016-07-11 06:40] LABS: POTASSIUM 3.6 mmol/L (3.5-5.1)
[2016-07-11 06:43] LABS: CREATININE 6.3 mg/dl (0.61-1.24)
[2016-07-11 06:44] LABS: CALCIUM 7.8 mg/dl (8.4-10.2)
[2016-07-11] MEDS ORDERED: CEFAZOLIN 1 GM INJ ONE (07:00)
[2016-07-11] MEDS: INSULIN ASPART [NOVOLOG] 3 ML PEN SC SCH ×7 (07:30→21:01)
[2016-07-11] MEDS: CALCIUM CARBONATE 750 MG CHEW TAB PO SCH ×4 (07:30→18:15)
[2016-07-11] MEDS: CALCIUM ACETATE 667 MG CAP PO SCH ×4 (07:35→18:16)
[2016-07-11] MEDS: COLLAGENASE 30 GM TUBE TOP SCH (09:00)
--- NOTE | 2016-07-11 09:19 | HPN ---
Date/Time of Note Date/Time of Note DATE: 07/11/16 TIME: 09:19 Interval H&P Admission Note Pt. seen H&P reviewed: No system changes TRACEE VASQUEZ DPM Jul 11, 2016 09:19
[2016-07-11] MEDS ORDERED: BUPIVACAINE 0.5% (SDV) 30 ML INJ ONE (09:27)
[2016-07-11] MEDS ORDERED: POLYMYXIN B 500000 UNIT INJ ONE (09:27)
[2016-07-11] MEDS ORDERED: LIDOCAINE 1% (MPF) 30 ML INJ ONE (09:27)
[2016-07-11] MEDS ORDERED: LIDOCAINE 2% (MDV) 20 ML INJ ONE (09:28)
[2016-07-11] MEDS ORDERED: ONDANSETRON 4 MG INJ ONE (09:32)
[2016-07-11] MEDS ORDERED: PROPOFOL 20 ML ONE (09:32)
[2016-07-11] MEDS ORDERED: BACITRACIN 50000 UNITS INJ ONE (09:36)
[2016-07-11] MEDS ORDERED: METOCLOPRAMIDE 10 MG INJ ONE (09:44)
[2016-07-11] MEDS ORDERED: PHENYLephrine (100 MCG/ML) 5ML SYG ONE (09:45)
[2016-07-11] MEDS ORDERED: MIDAZOLAM 1 MG/ML 2 ML INJ ONE (09:58)
[2016-07-11 10:15] VITALS: BP 189/83; PULSE 91; RESP 14
[2016-07-11 10:19] VITALS: BP 113/51; PULSE 92; RESP 14
--- NOTE | 2016-07-11 10:19 | OPR ---
Date/Time of Note Date/Time of Note DATE: 07/11/16 TIME: 10:13 Operative Report Procedure Date: Jul 11, 2016 Preoperative Diagnosis Cellulitis of right foot Open wound right foot; chronic 2 x 2 cm involving bone Possible osteomyelitis of right foot Morbid obesity Diabetes mellitus Postoperative Diagnosis Cellulitis of right foot Open wound right foot; chronic Possible osteomyelitis of right foot Morbid obesity Diabetes mellitus Operation Performed Extensive surgical debridement of right foot chronic open wound to bleeding tissue Bone culture base of fifth metatarsal right foot Surgeon: TRACEE VASQUEZ DPM Anesthesia: MAC Anesthesiologist: Denzel Hall M.D. Estimated Blood Loss: minimal Specimens Bone from base of fifth metatarsal right foot. Necrotic tissue right foot open wound. Complications: None Pt Condition Post Procedure: stable Disposition: PACU Indications This is a pleasant 56-year-old male patient who has been suffering with chronic open wound of the right foot for the past several months. Patient was evaluated and was found to have cellulitis of the right foot and was admitted to the hospital for surgical debridement and culture of bone along with IV antibiotics. Risks and complications of this type of surgery was discussed with patient in great detail. Risks and complications discussed included, but are not limited to, postoperative infection, postoperative pain, hardware failure, failure of surgery to correct the problem, need for additional surgical procedures, deep venous thrombosis, limb loss and loss of life. Patient understands the discussion and agrees to the procedure. An informed consent was signed, obtained and placed in the chart. No guarantees or warrantees was given or implied as to the outcome of the procedure either in verbal or written form. Operative Findings Open wound right foot lateral aspect 2 x 2 cm and 5 cm deep to 3:00. Procedure Description Procedure in detail: The patient was brought into the operating room and was placed on the operating table in the supine position. IV sedation was administered to the patient by the anesthesiologist. All bony prominences were padded probably. A timeout was called by the circulating nurse. The correct site of surgery was identified. All instrumentation was checked. All necessary preoperative medications have been administered. The right foot was scrubbed, prepped and draped in the usual aseptic manner. Procedure #1: Attention was directed to the right foot lateral open wound: Extensive sharp debridement of right foot open wound was done using a #15 blade , scissors and pickups to bleeding tissue including skin, subcutaneous tissue, muscle, and bone. A bone culture was obtained from the base of the right fifth metatarsal. Next, the wound was flushed with copious amounts of sterile normal saline with antibiotic. I packed the wound with half-inch iodoform packing. Sterile dressing was applied to the right foot. The patient tolerated the procedure and anesthesia well. He was transferred to the recovery room with vital signs stable and vascular status intact to the right foot. Patient will be sent back to the floor after postoperative monitoring. Postoperative orders have been written. Patient will be followed up in-house. Prognosis is guarded at this point. Pending culture results of the bone, antibiotic treatment will be readjusted. At this point patient may do partial weightbearing with a postop shoe. Dressings to remain clean dry and intact. TRACEE VASQUEZ DPM Jul 11, 2016 10:19
[2016-07-11 10:25] VITALS: BP 116/60; PULSE 90; RESP 16
[2016-07-11] MEDS ORDERED: EPHEDrine SULFATE 50 MG/5 ML SYG IV PRN (10:30)
[2016-07-11] MEDS ORDERED: hydrALAzine 20 MG INJ IV PRN (10:30)
[2016-07-11] MEDS ORDERED: ONDANSETRON 4 MG INJ IV PRN (10:30)
[2016-07-11] MEDS ORDERED: LABETALOL HCL 20MG INJ IV PRN (10:30)
[2016-07-11] MEDS ORDERED: OXYCODONE/ACETAMINOPHEN (5/325) TAB PO PRN (10:30)
[2016-07-11] MEDS ORDERED: FENTAnyl 50 MCG/ML VIAL IV PRN ×3 (10:30)
[2016-07-11] MEDS ORDERED: TRIMETHOBENZAMIDE 100 MG/ML VIAL IM PRN (10:30)
[2016-07-11] MEDS ORDERED: HYDROmorphONE (0.2 MG/ML) 10ML SYG IV PRN ×3 (10:30)
[2016-07-11] MEDS ORDERED: DIPHENHYDRAMINE 50 MG INJ IV PRN (10:30)
[2016-07-11] MEDS ORDERED: MIDAZOLAM 1 MG/ML 2 ML INJ IV PRN (10:30)
[2016-07-11] MEDS ORDERED: MEPERIDINE 25 MG INJ IV PRN (10:30)
[2016-07-11] MEDS: FAMOTIDINE 20 MG TAB PO SCH ×2 (11:07→21:04)
--- NOTE | 2016-07-11 17:06 | CONS ---
Date/Time of Note Date/Time of Note DATE: 07/11/16 TIME: 17:06 Assessment/Plan Assessment/Plan Chief Complaint/Hosp Course ID PROGRESS NOTE TOTAL ABX DAY # => Vanco IV + Zosyn 24H INTERVAL SUMMARY * A/A/O, morbid obese, pale appearing M, laying supine, VSS, NAD * POD #0 -> S/p right foot debridement today * BCx (-) * ANTIMICROBIALS: He is on Zosyn. * DIAGNOSTICS: X-ray of the foot revealed cellulitis, questionable osteomyelitis. Arterial study was normal. Chest x-ray revealed density at the left base that could be a combination of atelectasis of the left lower lobe with a tiny left pleural effusion, no evidence of CHF. PHYSICAL EXAMINATION: GENERAL: 56 yo M w/morbid obesity, VSS, NAD HEENT: Pale, otherwise unremarkable NECK: Supple, trachea midline. CHEST: Rise symmetrical without dyspnea HEART: RRR ABDOMEN: Soft, massive pannus EXTREMITIES: Warm w/BLEXT chronic venous stasis hyperpigmentation, right foot BLACK wrap intact ID ASSESSMENT: 56 yo M 1. Right lower extremity acute on chronic cellulitis with diabetic ulceration, rule out osteomyelitis. * POD #0-> s/p debridement 2. Diabetes. 3. End-stage renal disease, hemodialysis dependent. 4. History of West Nile virus. INVASIVES: * CURRENT ABX: Vanco IV + Zosyn s/p ID RECOMMENDATIONS: CONTINUE Current ABX Consider MRI of his right foot to rule out osteomyelitis- will he fit in MRI? The patient is being followed by podiatry, nephrology, and endocrinology. Problems: Consultation Date/Type/Reason Admit Date/Time Jul 08, 2016 at 16:25 Initial Consult Date 07/09/16 Type of Consultation: ID Exam/Review of Systems Vital Signs Vitals Vital Signs Date Time Temp Pulse Resp B/P Pulse Ox O2 Delivery O2 Flow Rate FiO2 07/11/16 10:25 90 16 116/60 97 Room Air 07/11/16 10:23 98.5 Intake and Output 07/10/16 07/10/16 07/11/16 15:00 23:00 07:00 Intake Total 100 ml 1470 ml 600 ml Output Total 2500 ml 0 ml Balance 100 ml -1030 ml 600 ml Results Result Diagram: 07/09/16 0539 07/11/16 0550 Results 24 hrs Laboratory Tests Test 07/10/16 17:27 07/10/16 20:15 07/10/16 21:24 07/11/16 01:55 Bedside Glucose 161 215 224 H 233 H Test 07/11/16 05:50 07/11/16 07:41 07/11/16 11:04 07/11/16 14:38 Anion Gap 19 H Blood Urea Nitrogen 34 H Calcium Level 7.8 L Carbon Dioxide Level 28 Chloride Level 98 Creatinine 6.30 H Glucose Level 191 Phosphorus Level 4.3 Potassium Level 3.6 Sodium Level 141 Bedside Glucose 206 280 H 324 H Medications Medications Current Medications Diagnostic Test (Pha) 1 ea 1 ea 02 XX Last administered on 07/11/16 02:23; Admin Dose 1 EA; Start 07/09/16 at 02:00 Piperacillin Sod/ Tazobactam Sod (Zosyn 2.25gm/ 50ml (Pmx)) 50 ml @ 100 mls/hr Q8 IVPB Last administered on 07/11/16 14:32; Admin Dose 100 MLS/HR; Start 05/14 at 22:00 Acetaminophen (Tylenol Tab) 650 mg Q6H PRN PO PAIN LEVEL 1-3 OR FEVER; Start at 19:30 Acetaminophen/ Hydrocodone Bitart ([place] (5/325)) 1 tab Q6H PRN PO MODERATE PAIN LEVEL 4-6; Start 07/08/16 at 19:30 Docusate Sodium (Colace) 100 mg Q12H PRN PO CONSTIPATION; Start 07/08/16 at 19: 30 Famotidine (Pepcid) 20 mg Q12 PO Last administered on 07/11/16 11:07; Admin Dose 20 MG; Start 07/08/16 at 21:00 Heparin Sodium (Porcine) (Heparin (5000 Units/0.5 ml)) 5,000 unit Q8 SC Last administered on 07/11/16 05:37; Admin Dose 5,000 UNIT; Start 07/08/16 at 22:00 Miscellaneous Information 1 ea NOTE XX ; Start 07/08/16 at 19:30 Glucose (Glutose) 15 gm Q15M PRN PO DECREASED GLUCOSE; Start 07/08/16 at 19:30 Glucose (Glutose) 22.5 gm Q15M PRN PO DECREASED GLUCOSE; Start 07/08/16 at 19: 30 Dextrose (D50w Syringe) 25 ml Q15M PRN IV DECREASED GLUCOSE; Start 07/08/16 at 19:30 Dextrose (D50w Syringe) 50 ml Q15M PRN IV DECREASED GLUCOSE; Start 07/08/16 at 19:30 Glucagon (Glucagen) 1 mg Q15M PRN IM DECREASED GLUCOSE; Start 07/08/16 at 19:30 Glucose (Glutose) 15 gm Q15M PRN BUCCAL DECREASED GLUCOSE; Start 07/08/16 at 19 :30 Collagenase (Santyl) 1 applic DAILY TOP Last administered on 07/10/16t 08:33; Admin Dose 1 APPLIC; Start 07/09/16 at 09:00 Oxycodone/ Acetaminophen (Percocet (5/ 325)) 1 tab Q4H PRN PO PAIN; Start 07/11 at 10:30 Insulin Human NPH (Humulin N) 20 unit HS SC ; Start 07/11/16 at 21:00 BARRY DIAL NP Jul 11, 2016 17:06
--- NOTE | 2016-07-11 17:20 | PN ---
Date/Time of Note Date/Time of Note DATE: 07/11/16 TIME: 17:14 Assessment/Plan VTE Prophylaxis VTE Prophylaxis Intervention: contraindicated VTE Contraindication Reason: sx procedure on lower extremity Lines/Catheters IV [facility] Peripheral IV Urinary Cath still in place: No Assessment/Plan Problems: (1) Cellulitis of right foot Status: Acute Comment: Status post debridement right foot. Clinically stable. Cultures of wound pending. (2) Morbid obesity due to excess calories Status: Chronic (3) Diabetes mellitus type 2 in obese Status: Chronic Comment: Hyperglycemia with suboptimal control. Requires more basal coverage. Will add glargine 20 units daily to aspart and humulin n. (4) End-stage renal disease on hemodialysis Status: Chronic Comment: HD per nephrology. Subjective 24 Hr Interval Summary Free Text/Dictation Patient status post surgical debridement of foot. No complaints. Denies pain. Only concern at this time is high blood glucose levels. Exam/Review of Systems Vital Signs Vitals Vital Signs Date Time Temp Pulse Resp B/P Pulse Ox O2 Delivery O2 Flow Rate FiO2 07/11/16 10:25 90 16 116/60 97 Room Air 07/11/16 10:23 98.5 Intake and Output 07/10/16 07/10/16 07/11/16 15:00 23:00 07:00 Intake Total 100 ml 1470 ml 600 ml Output Total 2500 ml 0 ml Balance 100 ml -1030 ml 600 ml Exam Constitutional: alert, obese, oriented, well developed Head: normocephalic Eyes: EOMI, PERRL, nl conjunctiva Neck: supple Respiratory: clear to auscultation Cardiovascular: regular rate and rhythm Gastrointestinal: soft Musculoskeletal: other (foot wrapped in bandage) Skin: other (venous status changes lower extremities) Results POC glucose reviewed. Result Diagram: 07/09/16 0539 07/11/16 0550 Results 24 hrs Laboratory Tests Test 07/10/16 17:27 07/10/16 20:15 07/10/16 21:24 07/11/16 01:55 Bedside Glucose 161 215 224 H 233 H Test 07/11/16 05:50 07/11/16 07:41 07/11/16 11:04 07/11/16 14:38 Anion Gap 19 H Blood Urea Nitrogen 34 H Calcium Level 7.8 L Carbon Dioxide Level 28 Chloride Level 98 Creatinine 6.30 H Glucose Level 191 Phosphorus Level 4.3 Potassium Level 3.6 Sodium Level 141 Bedside Glucose 206 280 H 324 H Medications Medications Current Medications Diagnostic Test (Pha) 1 ea 1 ea 02 XX Last administered on 07/11/16 02:23; Admin Dose 1 EA; Start 07/09/16 at 02:00 Piperacillin Sod/ Tazobactam Sod (Zosyn 2.25gm/ 50ml (Pmx)) 50 ml @ 100 mls/hr Q8 IVPB Last administered on 07/11/16 14:32; Admin Dose 100 MLS/HR; Start 05/14 at 22:00 Acetaminophen (Tylenol Tab) 650 mg Q6H PRN PO PAIN LEVEL 1-3 OR FEVER; Start at 19:30 Acetaminophen/ Hydrocodone Bitart ([place] (5/325)) 1 tab Q6H PRN PO MODERATE PAIN LEVEL 4-6; Start 07/08/16 at 19:30 Docusate Sodium (Colace) 100 mg Q12H PRN PO CONSTIPATION; Start 07/08/16 at 19: 30 Famotidine (Pepcid) 20 mg Q12 PO Last administered on 07/11/16 11:07; Admin Dose 20 MG; Start 07/08/16 at 21:00 Heparin Sodium (Porcine) (Heparin (5000 Units/0.5 ml)) 5,000 unit Q8 SC Last administered on 07/11/16 05:37; Admin Dose 5,000 UNIT; Start 07/08/16 at 22:00 Miscellaneous Information 1 ea NOTE XX ; Start 07/08/16 at 19:30 Glucose (Glutose) 15 gm Q15M PRN PO DECREASED GLUCOSE; Start 07/08/16 at 19:30 Glucose (Glutose) 22.5 gm Q15M PRN PO DECREASED GLUCOSE; Start 07/08/16 at 19: 30 Dextrose (D50w Syringe) 25 ml Q15M PRN IV DECREASED GLUCOSE; Start 07/08/16 at 19:30 Dextrose (D50w Syringe) 50 ml Q15M PRN IV DECREASED GLUCOSE; Start 07/08/16 at 19:30 Glucagon (Glucagen) 1 mg Q15M PRN IM DECREASED GLUCOSE; Start 07/08/16 at 19:30 Glucose (Glutose) 15 gm Q15M PRN BUCCAL DECREASED GLUCOSE; Start 07/08/16 at 19 :30 Collagenase (Santyl) 1 applic DAILY TOP Last administered on 07/10/16t 08:33; Admin Dose 1 APPLIC; Start 07/09/16 at 09:00 Oxycodone/ Acetaminophen (Percocet (5/ 325)) 1 tab Q4H PRN PO PAIN; Start 07/11 at 10:30 Insulin Human NPH (Humulin N) 20 unit HS SC ; Start 07/11/16 at 21:00 MADYSON JASMINE MD Jul 11, 2016 17:19
[2016-07-11] MEDS: INSULIN GLARGINE [LANtus] 3 ML PEN SC SCH (19:01)
[2016-07-11] MEDS: NPH, HUMAN INSULIN ISOPHANE 3ML VIAL SC SCH (21:00)
[2016-07-11 21:05] VITALS: BP 99/67; RESP 20
[2016-07-11 21:15] VITALS: BP 99/67; PULSE 125; RESP 20
[2016-07-11 22:00] VITALS: BP 112/63; PULSE 106; RESP 20
[2016-07-12] MEDS: ACCUCHECK XX SCH ×4 (01:54→20:05)
[2016-07-12] MEDS: PIPER-TAZO 2.25 GM (PMX) 50 ML IVPB SCH ×3 (05:24→21:30)
[2016-07-12] MEDS: HEPARIN 5,000 UNIT/0.5 ML SYG SC SCH ×3 (05:25→21:27)
[2016-07-12 07:53] VITALS: BP 113/83; RESP 19
[2016-07-12] MEDS: CALCIUM CARBONATE 750 MG CHEW TAB PO SCH ×3 (08:09→17:55)
[2016-07-12] MEDS: CALCIUM ACETATE 667 MG CAP PO SCH ×3 (08:09→17:54)
[2016-07-12] MEDS: INSULIN ASPART [NOVOLOG] 3 ML PEN SC SCH ×6 (08:10→21:00)
[2016-07-12] MEDS: FAMOTIDINE 20 MG TAB PO SCH ×2 (08:15→21:25)
[2016-07-12] MEDS: COLLAGENASE 30 GM TUBE TOP SCH (08:16)
--- NOTE | 2016-07-12 11:56 | CONS ---
Date/Time of Note Date/Time of Note DATE: 07/12/16 TIME: 11:52 Assessment/Plan Assessment/Plan Problems: (1) Cellulitis of right foot Status: Acute Comment: status post debridement yesterday. Clinically stable (2) Morbid obesity due to excess calories Status: Chronic (3) Diabetes mellitus type 2 in obese Status: Chronic Comment: Improved glucose control with addition of Lantus and increase of NPH. Appears to need more prandial insulin. Will increase Novolog to 12 units AC plus sliding scale. (4) End-stage renal disease on hemodialysis Status: Chronic Comment: Per nephrology. Consultation Date/Type/Reason Admit Date/Time Jul 08, 2016 at 16:25 Initial Consult Date 07/09/16 Type of Consultation: endocrine 24 HR Interval Summary Free Text/Dictation Blood sugars a little better at first but high after breakfast. Exam/Review of Systems Vital Signs Vitals Vital Signs Date Time Temp Pulse Resp B/P Pulse Ox O2 Delivery O2 Flow Rate FiO2 07/12/16 07:53 98.6 82 19 113/83 97 07/11/16 22:00 High Flow Intake and Output 07/11/16 07/11/16 07/12/16 15:00 23:00 07:00 Intake Total 200 ml 990 ml 56 ml Output Total 5 ml Balance 195 ml 990 ml 56 ml Exam Constitutional: alert, obese, oriented Neck: supple Respiratory: clear to auscultation Cardiovascular: regular rate and rhythm Gastrointestinal: soft Musculoskeletal: other (right foot in bandage) Results POC glucose reviewed Result Diagram: 07/09/16 0539 07/11/16 0550 Results 24 hrs Laboratory Tests Test 07/11/16 14:38 07/11/16 17:01 07/11/16 20:49 07/12/16 01:53 Bedside Glucose 324 H 322 H 284 H 159 Test 07/12/16 05:39 07/12/16 07:29 07/12/16 11:12 Random Vancomycin Level 10.3 Bedside Glucose 177 215 Medications Medications Current Medications Diagnostic Test (Pha) 1 ea 1 ea 02 XX Last administered on 07/11/16t 02:23; Admin Dose 1 EA; Start 07/09/16 at 02:00 Piperacillin Sod/ Tazobactam Sod (Zosyn 2.25gm/ 50ml (Pmx)) 50 ml @ 100 mls/hr Q8 IVPB Last administered on 07/12/16 05:24; Admin Dose 100 MLS/HR; Start 05/14 at 22:00 Acetaminophen (Tylenol Tab) 650 mg Q6H PRN PO PAIN LEVEL 1-3 OR FEVER; Start at 19:30 Acetaminophen/ Hydrocodone Bitart ([place] (5/325)) 1 tab Q6H PRN PO MODERATE PAIN LEVEL 4-6; Start 07/08/16 at 19:30 Docusate Sodium (Colace) 100 mg Q12H PRN PO CONSTIPATION; Start 07/08/16 at 19: 30 Famotidine (Pepcid) 20 mg Q12 PO Last administered on 07/12/16 08:15; Admin Dose 20 MG; Start 07/08/16 at 21:00 Heparin Sodium (Porcine) (Heparin (5000 Units/0.5 ml)) 5,000 unit Q8 SC Last administered on 07/12/16 05:25; Admin Dose 5,000 UNIT; Start 07/08/16 at 22:00 Miscellaneous Information 1 ea NOTE XX ; Start 07/08/16 at 19:30 Glucose (Glutose) 15 gm Q15M PRN PO DECREASED GLUCOSE; Start 07/08/16 at 19:30 Glucose (Glutose) 22.5 gm Q15M PRN PO DECREASED GLUCOSE; Start 07/08/16 at 19: 30 Dextrose (D50w Syringe) 25 ml Q15M PRN IV DECREASED GLUCOSE; Start 07/08/16 at 19:30 Dextrose (D50w Syringe) 50 ml Q15M PRN IV DECREASED GLUCOSE; Start 07/08/16 at 19:30 Glucagon (Glucagen) 1 mg Q15M PRN IM DECREASED GLUCOSE; Start 07/08/16 at 19:30 Glucose (Glutose) 15 gm Q15M PRN BUCCAL DECREASED GLUCOSE; Start 07/08/16 at 19 :30 Collagenase (Santyl) 1 applic DAILY TOP Last administered on 07/10/16 08:33; Admin Dose 1 APPLIC; Start 07/09/16 at 09:00 Oxycodone/ Acetaminophen (Percocet (5/ 325)) 1 tab Q4H PRN PO PAIN; Start 07/11 at 10:30 Insulin Human NPH 20 unit 20 unit HS SC Last administered on 1/14/17at 21:00; Admin Dose 20 UNIT; Start 07/11/16 at 21:00 Vancomycin HCl/ Sodium Chloride (Vancocin/NS) 250 ml @ 83.333 mls/ hr ONCE ONCE IVPB ; Start 07/12/16 at 12:00; Stop 07/12/16 at 14:59 MADYSON JASMINE MD Jul 12, 2016 11:56
[2016-07-12] MEDS ORDERED: VANCOMYCIN 1.5 GM in SOD CHLORIDE 0.9% 250 ML IVPB ONE (12:00)
[2016-07-12 14:38] LABS: ADD UMIC YES; URINE BILIRUBIN (Dip) NEGATIVE (NEGATIVE); URINE BLOOD (Dip) 2+ (NEGATIVE); URINE COLOR YELLOW (YELLOW); URINE KETONES (Dip) NEGATIVE (NEGATIVE); URINE LEUKOCYTE ESTERASE (Dip) NEGATIVE (NEGATIVE); URINE NITRITE (Dip) NEGATIVE (NEGATIVE); URINE TOTAL PROTEIN (Dip) 4+ (NEGATIVE); URINE UROBILINOGEN (Dip) 0.2 E.U./dL (0.1-1.0)
[2016-07-12 14:48] LABS: BACTERIA,URINE FEW; SQUAMOUS EPITHELIAL CELL,UR MODERATE
--- NOTE | 2016-07-12 16:52 | CONS ---
Date/Time of Note Date/Time of Note DATE: 07/12/16 TIME: 16:48 Assessment/Plan Assessment/Plan Chief Complaint/Hosp Course ID PROGRESS NOTE TOTAL ABX DAY # => Vanco IV + Zosyn 24H INTERVAL SUMMARY * Clincally stable -- right foot DSG C/D/I - awaiting micro results * POD #1 -> S/p right foot debridement * Blu: 07/11/16-1030 Rcvd: 07/11/16-1046 Source: RIGHT FOOT Sp Descrip: Microbiology GRAM STAIN Final [place]. LEUKOCYTE 1+ . NO ORGANISM SEEN TISSUE (BIOPSY) CULTURE Preliminary NO GROWTH AFTER 1 DAY PHYSICAL EXAMINATION: GENERAL: 56 yo M w/morbid obesity, VSS, NAD HEENT: Pale, otherwise unremarkable NECK: Supple, trachea midline. CHEST: Rise symmetrical without dyspnea HEART: RRR ABDOMEN: Soft, massive pannus EXTREMITIES: Warm w/BLEXT chronic venous stasis hyperpigmentation, right foot BLACK wrap intact ID ASSESSMENT: 56 yo M 1. Right lower extremity acute on chronic cellulitis with diabetic ulceration, rule out osteomyelitis. * POD #1-> s/p debridement 07/11/16 * MICRO: GRAM STAIN Final [place]. LEUKOCYTE 1+ . NO ORGANISM SEEN TISSUE (BIOPSY) CULTURE Preliminary NO GROWTH AFTER 1 DAY 2. Diabetes. 3. End-stage renal disease, hemodialysis dependent. 4. History of West Nile virus. INVASIVES: * CURRENT ABX: Vanco IV + Zosyn s/p ID RECOMMENDATIONS: CONTINUE Current ABX -> Anticipate need for 6-8 weeks IV ABX to cover concern for osteomyelitis Awaiting bone biopsy The patient is being followed by podiatry, nephrology, and endocrinology. . Problems: Consultation Date/Type/Reason Admit Date/Time Jul 08, 2016 at 16:25 Initial Consult Date 07/09/16 Type of Consultation: ID Exam/Review of Systems Vital Signs Vitals Vital Signs Date Time Temp Pulse Resp B/P Pulse Ox O2 Delivery O2 Flow Rate FiO2 07/12/16 07:53 98.6 82 19 113/83 97 07/11/16 22:00 High Flow Intake and Output 1/07/11/16 07/12/16 15:00 23:00 07:00 Intake Total 200 ml 990 ml 56 ml Output Total 5 ml Balance 195 ml 990 ml 56 ml Results Result Diagram: 07/09/16 0539 07/11/16 0550 Results 24 hrs Laboratory Tests Test 07/11/16 17:01 07/11/16 20:49 07/12/16 01:53 07/12/16 05:39 Bedside Glucose 322 H 284 H 159 Random Vancomycin Level 10.3 Test 07/12/16 07:15 07/12/16 07:29 07/12/16 11:12 Urine Bacteria FEW Urine Bilirubin NEGATIVE Urine Clarity SLIGHTLY CLOUDY Urine Color YELLOW Urine Glucose 0.25% H Urine Hemoglobin 2+ H Urine Ketones NEGATIVE Urine Leukocyte Esterase NEGATIVE Urine Microscopic RBC 2-5 Urine Microscopic WBC 5-10 Urine Nitrite NEGATIVE Urine Specific [place] >=1.030 H Urine Squamous Epithelial Cells MODERATE Urine Total Protein 4+ H Urine Urobilinogen 0.2 E.U./dL Urine pH 6.0 Bedside Glucose 177 215 Medications Medications Current Medications Diagnostic Test (Pha) 1 ea 1 ea 02 XX Last administered on 07/11/16 02:23; Admin Dose 1 EA; Start 07/09/16 at 02:00 Piperacillin Sod/ Tazobactam Sod (Zosyn 2.25gm/ 50ml (Pmx)) 50 ml @ 100 mls/hr Q8 IVPB Last administered on 07/12/16 15:52; Admin Dose 100 MLS/HR; Start 05/14 at 22:00 Acetaminophen (Tylenol Tab) 650 mg Q6H PRN PO PAIN LEVEL 1-3 OR FEVER; Start at 19:30 Acetaminophen/ Hydrocodone Bitart ([place] (5/325)) 1 tab Q6H PRN PO MODERATE PAIN LEVEL 4-6; Start 07/08/16 at 19:30 Docusate Sodium (Colace) 100 mg Q12H PRN PO CONSTIPATION; Start 07/08/16 at 19: 30 Famotidine (Pepcid) 20 mg Q12 PO Last administered on 07/12/16 08:15; Admin Dose 20 MG; Start 07/08/16 at 21:00 Heparin Sodium (Porcine) (Heparin (5000 Units/0.5 ml)) 5,000 unit Q8 SC Last administered on 07/12/16 14:40; Admin Dose 5,000 UNIT; Start 07/08/16 at 22:00 Miscellaneous Information 1 ea NOTE XX ; Start 07/08/16 at 19:30 Glucose (Glutose) 15 gm Q15M PRN PO DECREASED GLUCOSE; Start 07/08/16 at 19:30 Glucose (Glutose) 22.5 gm Q15M PRN PO DECREASED GLUCOSE; Start 07/08/16 at 19: 30 Dextrose (D50w Syringe) 25 ml Q15M PRN IV DECREASED GLUCOSE; Start 07/08/16 at 19:30 Dextrose (D50w Syringe) 50 ml Q15M PRN IV DECREASED GLUCOSE; Start 07/08/16 at 19:30 Glucagon (Glucagen) 1 mg Q15M PRN IM DECREASED GLUCOSE; Start 07/08/16 at 19:30 Glucose (Glutose) 15 gm Q15M PRN BUCCAL DECREASED GLUCOSE; Start 07/08/16 at 19 :30 Collagenase (Santyl) 1 applic DAILY TOP Last administered on 07/10/16 08:33; Admin Dose 1 APPLIC; Start 07/09/16 at 09:00 Oxycodone/ Acetaminophen (Percocet (5/ 325)) 1 tab Q4H PRN PO PAIN; Start 07/11 at 10:30 Insulin Human NPH (Humulin N) 20 unit HS SC Last administered on 07/11/16 21: 00; Admin Dose 20 UNIT; Start 07/11/16 at 21:00 BARRY DIAL NP Jul 12, 2016 16:52
[2016-07-12] MEDS: INSULIN GLARGINE [LANtus] 3 ML PEN SC SCH (17:56)
[2016-07-12 20:00] VITALS: BP 114/58; PULSE 72; RESP 20
[2016-07-12 20:17] VITALS: BP 114/58; RESP 18
[2016-07-12] MEDS: NPH, HUMAN INSULIN ISOPHANE 3ML VIAL SC SCH (21:00)
[2016-07-13] VITALS (11 sets, daily range): BP systolic 104–190; BP diastolic 51–76; PULSE 77–116; RESP 16–20
[2016-07-13] MEDS: ACCUCHECK XX SCH ×4 (01:52→20:05)
[2016-07-13] MEDS: PIPER-TAZO 2.25 GM (PMX) 50 ML IVPB SCH ×4 (06:26→21:47)
[2016-07-13] MEDS: HEPARIN 5,000 UNIT/0.5 ML SYG SC SCH ×3 (06:29→21:46)
[2016-07-13] MEDS: INSULIN ASPART [NOVOLOG] 3 ML PEN SC SCH ×7 (07:30→21:00)
[2016-07-13] MEDS: COLLAGENASE 30 GM TUBE TOP SCH (09:00)
[2016-07-13] MEDS: FAMOTIDINE 20 MG TAB PO SCH (09:14)
[2016-07-13] MEDS: CALCIUM ACETATE 667 MG CAP PO SCH ×3 (09:15→18:00)
[2016-07-13] MEDS: CALCIUM CARBONATE 750 MG CHEW TAB PO SCH ×3 (09:15→18:00)
--- NOTE | 2016-07-13 10:30 | PQ ---
Date/Time of Note Date/Time of Note DATE: 07/13/16 TIME: 10:25 Physician Query Dear Candi Blood, A review of the medical record found a need for documentation clarification. The relevant information is provided below: Operation Performed Extensive surgical debridement of right foot chronic open wound to bleeding tissue Bone culture base of fifth metatarsal right foot Please clarify the debridement procedure performed:To facilitate accurate and complete coding, please fidelina ( x ) the suspected diagnosis that apply: ( X ) Excisional debridement ( ) Non- excisional debridement Excisional Debridement = surgical removal or cutting away of devitalized tissue , necrosis or slough. It must be clearly defined as a definite cutting away of tissue or stated as excisional debridement of tissue (cutting beyond wound margins and not the minor removal of loose fragments or eschar). Scraping away tissue IS NOT considered to be an excisional debridement. Non Excisional Debridement = minor removal of loose fragments or eschar with scissors or scraping away tissue either with or without a sharp instrument, scrubbing devitalized tissue,washing, irrigating of wound, chemical or enzymatic treatment or trimming/ scraping to remove fragments of tissue. Please provide your response by clicking edit document, making your choice ( x ), click ok and finally click sign. You may also document your response on your progress notes. Thank you for your time. Wanda Fontaine RN, BSN, CCS, CCDS [employer] Health Information Management, [employer] and Coding Services [phone] Ext . # [phone] Room # 1525 - [address]~ [address] WANDA FONTAINE Jul 13, 2016 10:30 TRACEE VASQUEZ DPM Jul 20, 2016 22:02
--- NOTE | 2016-07-13 10:45 | CONS ---
Date/Time of Note Date/Time of Note DATE: 07/13/16 TIME: 10:43 Assessment/Plan Assessment/Plan Chief Complaint/Hosp Course - ESRD Hemodialysis dependent - Diabetes - Hypertension - Hx of excessive fluid gains in between dialysis - Anemia of Chronic disease - Hyperphosphatemia PLAN: On bedside dialysis S/P Debridement of his wound Monitor Electrolytes Antibiotics per ID Problems: Consultation Date/Type/Reason Admit Date/Time Jul 08, 2016 at 16:25 Initial Consult Date 07/09/16 Type of Consultation: NEPHROLOGY Reason for Consultation ESRD on Hemodialysis 24 HR Interval Summary Constitutional: improved, no complaints Exam/Review of Systems Vital Signs Vitals Vital Signs Date Time Temp Pulse Resp B/P Pulse Ox O2 Delivery O2 Flow Rate FiO2 07/13/16 07:44 97.7 73 16 130/60 96 07/12/16 20:00 Room Air Intake and Output 07/12/16 07/12/16 07/13/16 15:00 23:00 07:00 Intake Total 1300 ml 890 ml Balance 1300 ml 890 ml Exam Constitutional: alert, oriented Psych: no complaints Head: normocephalic ENMT: nl external ears & nose Neck: supple Respiratory: crackles/rales Cardiovascular: regular rate and rhythm, systolic murmur Gastrointestinal: soft Results Result Diagram: 07/09/16 0539 07/11/16 0550 Results 24 hrs Laboratory Tests Test 07/12/16 11:12 07/12/16 16:53 07/12/16 21:07 07/13/16 07:48 Bedside Glucose 215 178 87 153 Medications Medications Current Medications Diagnostic Test (Pha) 1 ea 1 ea 02 XX Last administered on 07/11/16 02:23; Admin Dose 1 EA; Start 07/09/16 at 02:00 Piperacillin Sod/ Tazobactam Sod (Zosyn 2.25gm/ 50ml (Pmx)) 50 ml @ 100 mls/hr Q8 IVPB Last administered on 07/13/16 06:26; Admin Dose 100 MLS/HR; Start 05/14 at 22:00 Acetaminophen (Tylenol Tab) 650 mg Q6H PRN PO PAIN LEVEL 1-3 OR FEVER; Start at 19:30 Acetaminophen/ Hydrocodone Bitart ([place] (5/325)) 1 tab Q6H PRN PO MODERATE PAIN LEVEL 4-6; Start 07/08/16 at 19:30 Docusate Sodium (Colace) 100 mg Q12H PRN PO CONSTIPATION; Start 07/08/16 at 19: 30 Famotidine (Pepcid) 20 mg Q12 PO Last administered on 07/13/16 09:14; Admin Dose 20 MG; Start 07/08/16 at 21:00 Heparin Sodium (Porcine) (Heparin (5000 Units/0.5 ml)) 5,000 unit Q8 SC Last administered on 07/13/16 06:29; Admin Dose 5,000 UNIT; Start 07/08/16 at 22:00 Miscellaneous Information 1 ea NOTE XX ; Start 07/08/16 at 19:30 Glucose (Glutose) 15 gm Q15M PRN PO DECREASED GLUCOSE; Start 07/08/16 at 19:30 Glucose (Glutose) 22.5 gm Q15M PRN PO DECREASED GLUCOSE; Start 07/08/16 at 19: 30 Dextrose (D50w Syringe) 25 ml Q15M PRN IV DECREASED GLUCOSE; Start 07/08/16 at 19:30 Dextrose (D50w Syringe) 50 ml Q15M PRN IV DECREASED GLUCOSE; Start 07/08/16 at 19:30 Glucagon (Glucagen) 1 mg Q15M PRN IM DECREASED GLUCOSE; Start 07/08/16 at 19:30 Glucose (Glutose) 15 gm Q15M PRN BUCCAL DECREASED GLUCOSE; Start 07/08/16 at 19 :30 Collagenase (Santyl) 1 applic DAILY TOP Last administered on 07/10/16 08:33; Admin Dose 1 APPLIC; Start 07/09/16 at 09:00 Oxycodone/ Acetaminophen (Percocet (5/ 325)) 1 tab Q4H PRN PO PAIN; Start 07/11 at 10:30 Insulin Human NPH (Humulin N) 20 unit HS SC Last administered on 07/11/16 21: 00; Admin Dose 20 UNIT; Start 07/11/16 at 21:00 REED FERRELL MD Jul 13, 2016 10:44
--- NOTE | 2016-07-13 13:27 | PN ---
Date/Time of Note Date/Time of Note DATE: 07/13/16 TIME: 13:25 Assessment/Plan VTE Prophylaxis VTE Prophylaxis Intervention: heparin Lines/Catheters IV [facility] Peripheral IV Urinary Cath still in place: No Assessment/Plan Problems: (1) Diabetic foot ulcer associated with type 2 diabetes mellitus Status: Acute Comment: Is status post significant debridement. Cultures of the bone are pending. However at this time given the negative wound culture negative blood cultures we should be moving toward coming up with a regimen of antibiotics for the patient be discharged on especially given his positive clinical response to the presumptive antibiotics prior to surgical debridement. Need ID input on the best regimen possible for discharge. His blood sugar control has done quite well using the somewhat old-fashioned regimen that he is on here Qualifiers: Laterality: right Qualified Code: E11.621 - Diabetic ulcer of right foot associated with type 2 diabetes mellitus (2) End stage renal disease on dialysis due to type 2 diabetes mellitus Status: Chronic Comment: He is receiving dialysis on a regular basis and stable Subjective 24 Hr Interval Summary Free Text/Dictation Patient reports he is getting somewhat impatient to be able to go home Constitutional: no complaints Respiratory: no complaints Cardiovascular: no complaints Gastrointestinal: no complaints Exam/Review of Systems Vital Signs Vitals Vital Signs Date Time Temp Pulse Resp B/P Pulse Ox O2 Delivery O2 Flow Rate FiO2 07/13/16 07:44 97.7 73 16 130/60 96 07/12/16 20:00 Room Air Intake and Output 07/12/16 07/12/16 07/13/16 15:00 23:00 07:00 Intake Total 1300 ml 890 ml Balance 1300 ml 890 ml Exam Constitutional: alert, oriented Neck: non-tender, supple Respiratory: clear to auscultation, normal air movement Cardiovascular: nl pulses, regular rate and rhythm Gastrointestinal: nl liver, spleen, non-tender, soft Results Result Diagram: 07/09/16 0539 07/11/16 0550 Results 24 hrs Laboratory Tests Test 07/12/16 16:53 07/12/16 21:07 07/13/16 07:48 07/13/16 12:04 Bedside Glucose 178 87 153 239 H Medications Medications Current Medications Diagnostic Test (Pha) 1 ea 1 ea 02 XX Last administered on 07/11/16t 02:23; Admin Dose 1 EA; Start 07/09/16 at 02:00 Piperacillin Sod/ Tazobactam Sod (Zosyn 2.25gm/ 50ml (Pmx)) 50 ml @ 100 mls/hr Q8 IVPB Last administered on 07/13/16 06:26; Admin Dose 100 MLS/HR; Start 05/14 at 22:00 Acetaminophen (Tylenol Tab) 650 mg Q6H PRN PO PAIN LEVEL 1-3 OR FEVER; Start at 19:30 Acetaminophen/ Hydrocodone Bitart ([place] (5/325)) 1 tab Q6H PRN PO MODERATE PAIN LEVEL 4-6; Start 07/08/16 at 19:30 Docusate Sodium (Colace) 100 mg Q12H PRN PO CONSTIPATION; Start 07/08/16 at 19: 30 Heparin Sodium (Porcine) (Heparin (5000 Units/0.5 ml)) 5,000 unit Q8 SC Last administered on 07/13/16 06:29; Admin Dose 5,000 UNIT; Start 07/08/16 at 22:00 Miscellaneous Information 1 ea NOTE XX ; Start 07/08/16 at 19:30 Glucose (Glutose) 15 gm Q15M PRN PO DECREASED GLUCOSE; Start 07/08/16 at 19:30 Glucose (Glutose) 22.5 gm Q15M PRN PO DECREASED GLUCOSE; Start 07/08/16 at 19: 30 Dextrose (D50w Syringe) 25 ml Q15M PRN IV DECREASED GLUCOSE; Start 07/08/16 at 19:30 Dextrose (D50w Syringe) 50 ml Q15M PRN IV DECREASED GLUCOSE; Start 07/08/16 at 19:30 Glucagon (Glucagen) 1 mg Q15M PRN IM DECREASED GLUCOSE; Start 07/08/16 at 19:30 Glucose (Glutose) 15 gm Q15M PRN BUCCAL DECREASED GLUCOSE; Start 07/08/16 at 19 :30 Collagenase (Santyl) 1 applic DAILY TOP Last administered on 07/10/16 08:33; Admin Dose 1 APPLIC; Start 07/09/16 at 09:00 Oxycodone/ Acetaminophen (Percocet (5/ 325)) 1 tab Q4H PRN PO PAIN; Start 07/11 at 10:30 Insulin Human NPH (Humulin N) 20 unit HS SC Last administered on 1/14/17at 21: 00; Admin Dose 20 UNIT; Start 07/11/16 at 21:00 Famotidine (Pepcid) 20 mg DAILY PO ; Start 07/14/16 at 09:00 LORIN BARAHONA MD Jul 13, 2016 13:27
[2016-07-13] MEDS: INSULIN GLARGINE [LANtus] 3 ML PEN SC SCH (16:42)
--- NOTE | 2016-07-13 19:09 | CONS ---
Date/Time of Note Date/Time of Note DATE: 07/13/16 TIME: 19:07 Assessment/Plan Assessment/Plan Chief Complaint/Hosp Course ID PROGRESS NOTE TOTAL ABX DAY # => Vanco IV + Zosyn 24H INTERVAL SUMMARY * Doing well -- resting comfortably, talking on the phone -- Clinically stable - - right foot DSG C/D/I - awaiting micro results * POD #2 -> S/p right foot debridement * Blu: 07/11/16-1030 Rcvd: 07/11/16-1046 Source: RIGHT FOOT Sp Descrip: Microbiology GRAM STAIN Final POLYMORPH. LEUKOCYTE 1+ . NO ORGANISM SEEN ISSUE (BIOPSY) CULTURE Preliminary NO GROWTH AFTER 2 DAY PHYSICAL EXAMINATION: GENERAL: 56 yo M w/morbid obesity, VSS, NAD HEENT: Pale, otherwise unremarkable NECK: Supple, trachea midline. CHEST: Rise symmetrical without dyspnea HEART: RRR ABDOMEN: Soft, massive pannus EXTREMITIES: Warm w/BLEXT chronic venous stasis hyperpigmentation, right foot BLACK wrap intact ID ASSESSMENT: 56 yo M 1. Right lower extremity acute on chronic cellulitis with diabetic ulceration, rule out osteomyelitis. * POD #1-> s/p debridement 07/11/16 * MICRO: GRAM STAIN Final POLYMORPH. LEUKOCYTE 1+ . NO ORGANISM SEEN TISSUE (BIOPSY) CULTURE Preliminary NO GROWTH AFTER 1 DAY 2. Diabetes. 3. End-stage renal disease, hemodialysis dependent. 4. History of West Nile virus. INVASIVES: * CURRENT ABX: Vanco IV + Zosyn s/p ID RECOMMENDATIONS: CONTINUE Current ABX -> Anticipate need for 6-8 weeks IV ABX to cover concern for osteomyelitis Awaiting bone biopsy final results pending ISSUE (BIOPSY) CULTURE Preliminary NO GROWTH AFTER 2 DAY The patient is being followed by podiatry, nephrology, and endocrinology. . Problems: Consultation Date/Type/Reason Admit Date/Time Jul 08, 2016 at 16:25 Initial Consult Date 07/09/16 Type of Consultation: ID Exam/Review of Systems Vital Signs Vitals Vital Signs Date Time Temp Pulse Resp B/P Pulse Ox O2 Delivery O2 Flow Rate FiO2 07/13/16 17:00 89 18 07/13/16 07:44 97.7 130/60 96 07/12/16 20:00 Room Air Intake and Output 07/12/16 07/12/16 07/13/16 15:00 23:00 07:00 Intake Total 1300 ml 890 ml Balance 1300 ml 890 ml Results Result Diagram: 07/09/16 0539 07/11/16 0550 Results 24 hrs Laboratory Tests Test 07/12/16 21:07 07/13/16 07:48 07/13/16 12:04 07/13/16 14:26 Bedside Glucose 87 153 239 H 106 Test 07/13/16 16:32 Bedside Glucose 145 Medications Medications Current Medications Diagnostic Test (Pha) 1 ea 1 ea 02 XX Last administered on 07/11/16 02:23; Admin Dose 1 EA; Start 07/09/16 at 02:00 Piperacillin Sod/ Tazobactam Sod (Zosyn 2.25gm/ 50ml (Pmx)) 50 ml @ 100 mls/hr Q8 IVPB Last administered on 07/13/16 18:00; Admin Dose 100 MLS/HR; Start 05/14 at 22:00 Acetaminophen (Tylenol Tab) 650 mg Q6H PRN PO PAIN LEVEL 1-3 OR FEVER; Start at 19:30 Acetaminophen/ Hydrocodone Bitart ([place] (5/325)) 1 tab Q6H PRN PO MODERATE PAIN LEVEL 4-6; Start 07/08/16 at 19:30 Docusate Sodium (Colace) 100 mg Q12H PRN PO CONSTIPATION; Start 07/08/16 at 19: 30 Heparin Sodium (Porcine) (Heparin (5000 Units/0.5 ml)) 5,000 unit Q8 SC Last administered on 07/13/16 06:29; Admin Dose 5,000 UNIT; Start 07/08/16 at 22:00 Miscellaneous Information 1 ea NOTE XX ; Start 07/08/16 at 19:30 Glucose (Glutose) 15 gm Q15M PRN PO DECREASED GLUCOSE; Start 07/08/16 at 19:30 Glucose (Glutose) 22.5 gm Q15M PRN PO DECREASED GLUCOSE; Start 07/08/16 at 19: 30 Dextrose (D50w Syringe) 25 ml Q15M PRN IV DECREASED GLUCOSE; Start 07/08/16 at 19:30 Dextrose (D50w Syringe) 50 ml Q15M PRN IV DECREASED GLUCOSE; Start 07/08/16 at 19:30 Glucagon (Glucagen) 1 mg Q15M PRN IM DECREASED GLUCOSE; Start 07/08/16 at 19:30 Glucose (Glutose) 15 gm Q15M PRN BUCCAL DECREASED GLUCOSE; Start 07/08/16 at 19 :30 Collagenase (Santyl) 1 applic DAILY TOP Last administered on 07/10/16 08:33; Admin Dose 1 APPLIC; Start 07/09/16 at 09:00 Oxycodone/ Acetaminophen (Percocet (5/ 325)) 1 tab Q4H PRN PO PAIN; Start 07/11 at 10:30 Insulin Human NPH (Humulin N) 20 unit HS SC Last administered on 07/11/16 21: 00; Admin Dose 20 UNIT; Start 07/11/16 at 21:00 Famotidine (Pepcid) 20 mg DAILY PO ; Start 07/14/16 at 09:00 BARRY DIAL NP Jul 13, 2016 19:09
[2016-07-13] MEDS: NPH, HUMAN INSULIN ISOPHANE 3ML VIAL SC SCH (21:45)
[2016-07-14] MEDS: ACCUCHECK XX SCH ×4 (02:00→20:05)
[2016-07-14] MEDS: PIPER-TAZO 2.25 GM (PMX) 50 ML IVPB SCH (06:16)
[2016-07-14] MEDS: HEPARIN 5,000 UNIT/0.5 ML SYG SC SCH ×3 (06:17→22:03)
[2016-07-14 08:06] VITALS: BP 128/61; RESP 20
[2016-07-14] MEDS: FAMOTIDINE 20 MG TAB PO SCH (08:39)
[2016-07-14] MEDS: CALCIUM CARBONATE 750 MG CHEW TAB PO SCH ×3 (08:39→17:52)
[2016-07-14] MEDS: CALCIUM ACETATE 667 MG CAP PO SCH ×3 (08:39→17:52)
[2016-07-14] MEDS: INSULIN ASPART [NOVOLOG] 3 ML PEN SC SCH ×7 (08:41→21:00)
[2016-07-14] MEDS: COLLAGENASE 30 GM TUBE TOP SCH (08:42)
--- NOTE | 2016-07-14 14:04 | PN ---
Date/Time of Note Date/Time of Note DATE: 07/14/16 TIME: 14:00 Assessment/Plan VTE Prophylaxis VTE Prophylaxis Intervention: heparin Lines/Catheters IV [facility] (from [facility]): Peripheral IV Urinary Cath still in place: No Assessment/Plan Problems: (1) Diabetic foot ulcer associated with type 2 diabetes mellitus Status: Acute Comment: His diabetes is adequately controlled. We are pending the pathology report regarding the bone biopsy. In the meantime the bone cultures are no growth as are the blood cultures. Because this infectious disease recommends the usage of 6 weeks of antibiotic therapy. We can do a combination of oral Levaquin at 250 once a day which would be equivalent of high-dose oral therapy in a patient with normal renal function and the vancomycin can be dosed at dialysis as it has been with the cooperation of Dr. Esparza Qualifiers: Laterality: right Qualified Code: E11.621 - Diabetic ulcer of right foot associated with type 2 diabetes mellitus (2) End stage renal disease on dialysis due to type 2 diabetes mellitus Status: Chronic Comment: As per Dr. Cabrera and outpatient vancomycin for 6 weeks (3) Morbid obesity due to excess calories Status: Chronic Comment: Counseled Subjective 24 Hr Interval Summary Free Text/Dictation Patient asleep in bed notably not snoring Respiratory: no complaints Cardiovascular: no complaints Gastrointestinal: no complaints Exam/Review of Systems Vital Signs Vitals Vital Signs Date Time Temp Pulse Resp B/P Pulse Ox O2 Delivery O2 Flow Rate FiO2 07/14/16 08:06 98.1 71 20 128/61 94 07/13/16 20:00 Room Air Intake and Output 07/13/16 07/13/16 07/14/16 15:00 23:00 07:00 Intake Total 1030 ml 350 ml Output Total 7500 ml Balance -6470 ml 350 ml Exam Does not snore Constitutional: alert, oriented Respiratory: clear to auscultation, normal air movement Cardiovascular: nl pulses, regular rate and rhythm Results Result Diagram: 07/11/16 0550 Results 24 hrs Laboratory Tests Test 07/13/16 14:26 07/13/16 16:32 07/13/16 21:40 07/14/16 08:25 Bedside Glucose 106 145 157 142 Test 07/14/16 10:27 07/14/16 12:20 Bedside Glucose 159 145 Medications Medications Current Medications Diagnostic Test (Pha) (Accucheck) 1 02 XX Last administered on 07/11/16 02: 23; Admin Dose 1 EA; Start 07/09/16 at 02:00 Acetaminophen (Tylenol Tab) 650 mg Q6H PRN PO PAIN LEVEL 1-3 OR FEVER; Start at 19:30 Acetaminophen/ Hydrocodone Bitart ([place] (5/325)) 1 tab Q6H PRN PO MODERATE PAIN LEVEL 4-6; Start 07/08/16 at 19:30 Docusate Sodium (Colace) 100 mg Q12H PRN PO CONSTIPATION; Start 07/08/16 at 19: 30 Heparin Sodium (Porcine) (Heparin (5000 Units/0.5 ml)) 5,000 unit Q8 SC Last administered on 07/14/16 06:17; Admin Dose 5,000 UNIT; Start 07/08/16 at 22:00 Miscellaneous Information 1 ea NOTE XX ; Start 07/08/16 at 19:30 Glucose (Glutose) 15 gm Q15M PRN PO DECREASED GLUCOSE; Start 07/08/16 at 19:30 Glucose (Glutose) 22.5 gm Q15M PRN PO DECREASED GLUCOSE; Start 07/08/16 at 19: 30 Dextrose (D50w Syringe) 25 ml Q15M PRN IV DECREASED GLUCOSE; Start 07/08/16 at 19:30 Dextrose (D50w Syringe) 50 ml Q15M PRN IV DECREASED GLUCOSE; Start 07/08/16 at 19:30 Glucagon (Glucagen) 1 mg Q15M PRN IM DECREASED GLUCOSE; Start 07/08/16 at 19:30 Glucose (Glutose) 15 gm Q15M PRN BUCCAL DECREASED GLUCOSE; Start 07/08/16 at 19 :30 Collagenase (Santyl) 1 applic DAILY TOP Last administered on 07/10/16 08:33; Admin Dose 1 APPLIC; Start 07/09/16 at 09:00 Oxycodone/ Acetaminophen (Percocet (5/ 325)) 1 tab Q4H PRN PO PAIN; Start 07/11 at 10:30 Insulin Human NPH (Humulin N) 20 unit HS SC Last administered on 07/13/16 21: 45; Admin Dose 20 UNIT; Start 07/11/16 at 21:00 Famotidine (Pepcid) 20 mg DAILY PO Last administered on 1/17/17at 08:39; Admin Dose 20 MG; Start 07/14/16 at 09:00 Miscellaneous Information (*Rx Drug Level Order Reminder*) VANCO RANDOM W/ AM LABS... ONCE ONCE XX ; Start 07/15/16 at 05:00; Stop 07/15/16 at 05:01 Levofloxacin (Levaquin) 250 mg Q2D@06 PO ; Start 07/15/16 at 06:00 LORIN BARAHONA MD Jul 14, 2016 14:04
[2016-07-14] MEDS: INSULIN GLARGINE [LANtus] 3 ML PEN SC SCH (17:54)
[2016-07-14 21:01] VITALS: BP 123/58; RESP 18
[2016-07-14] MEDS: NPH, HUMAN INSULIN ISOPHANE 3ML VIAL SC SCH (21:10)
[2016-07-15] VITALS (9 sets, daily range): BP systolic 106–141; BP diastolic 53–76; PULSE 84–90; RESP 18
[2016-07-15] MEDS: ACCUCHECK XX SCH ×4 (02:00→20:37)
[2016-07-15] MEDS ORDERED: LEVOFLOXACIN 250 MG TAB PO SCH ×2 (06:00)
[2016-07-15] MEDS: HEPARIN 5,000 UNIT/0.5 ML SYG SC SCH ×3 (06:04→21:34)
[2016-07-15] MEDS: INSULIN ASPART [NOVOLOG] 3 ML PEN SC SCH ×7 (08:00→21:35)
[2016-07-15] MEDS: CALCIUM CARBONATE 750 MG CHEW TAB PO SCH ×3 (08:25→18:29)
[2016-07-15] MEDS: CALCIUM ACETATE 667 MG CAP PO SCH ×3 (08:25→18:29)
[2016-07-15] MEDS: FAMOTIDINE 20 MG TAB PO SCH (08:30)
[2016-07-15] MEDS: VANCOMYCIN 1.5 GM in SOD CHLORIDE 0.9% 250 ML IVPB SCH ×3 (11:39→18:33)
--- NOTE | 2016-07-15 16:54 | PN ---
DATE: 07/15/2016 INFECTIOUS DISEASE PROGRESS NOTE SUBJECTIVE: No acute changes. The patient is awake, eating lunch, no fever. MICROBIOLOGY: Right foot wound culture growing Strep agalactiae anaerobic culture negative. ANTIMICROBIALS: The patient is on: 1. Vancomycin. 2. Levaquin. INDWELLINGS: Left upper extremity AV fistula. PHYSICAL EXAMINATION: GENERAL: This is a morbidly obese, well-developed, middle-aged man who is awake, in no distress. HEENT: Head atraumatic, normocephalic. Sclerae anicteric. Buccal mucosa pink. NECK: Obese. CHEST: Rise symmetrical. Breath sounds clear. HEART: S1, S2. ABDOMEN: Soft, bowel tones present. EXTREMITIES: Right foot lower extremity dressing intact. ASSESSMENT 1. Right lower extremity acute on chronic cellulitis, chronic venous stasis and possible osteomyeli tis, status post incision and drainage with wound culture growing strep. 2. Morbid obesity. 3. Diabetes. 4. End-stage renal disease, hemodialysis dependent. PLAN: The patient remains stable. We are going to discontinue Levaquin, keep him on IV vancomycin and anticipate treating him with vancomycin for 6 to 8 weeks, that can be done at the hemodialysis c enter through AV fistula. Above was discussed with Dr. Garcia. Dictated By: JAYANT HENSON CODING AND REIMBURSEMENT SPECIALIST for [employer]/JESSIE Conf#: [id number] DID#: [id number]
--- NOTE | 2016-07-15 17:09 | PN ---
Date/Time of Note Date/Time of Note DATE: 07/15/16 TIME: 17:06 Assessment/Plan VTE Prophylaxis VTE Prophylaxis Intervention: other Lines/Catheters IV Catheter Type (from Nrs): [place] Urinary Cath still in place: No Assessment/Plan Problems: (1) Diabetic foot ulcer associated with type 2 diabetes mellitus Status: Acute Comment: Culture grows out strep. Is a pansensitive organism he will be receiving IV vancomycin at dialysis. Will not be using the Levaquin at discharge Qualifiers: Laterality: right Qualified Code: E11.621 - Diabetic ulcer of right foot associated with type 2 diabetes mellitus (2) End stage renal disease on dialysis due to type 2 diabetes mellitus Status: Chronic Comment: He continues on dialysis successfully please note his diabetes is well controlled on the somewhat older fashion regimen (3) Morbid obesity due to excess calories Status: Chronic Comment: Counseled Subjective 24 Hr Interval Summary Free Text/Dictation Patient is awake and alert reports he is generally doing okay Constitutional: no complaints ENT: no complaints Respiratory: no complaints Cardiovascular: no complaints Gastrointestinal: no complaints Exam/Review of Systems Vital Signs Vitals Vital Signs Date Time Temp Pulse Resp B/P Pulse Ox O2 Delivery O2 Flow Rate FiO2 07/15/16 08:03 98.8 78 18 113/54 98 07/13/16 20:00 Room Air Intake and Output 07/14/16 07/14/16 07/15/16 15:00 23:00 07:00 Intake Total 760 ml 360 ml Output Total 0 ml Balance 760 ml 360 ml Exam Constitutional: alert, oriented Respiratory: clear to auscultation, normal air movement Cardiovascular: nl pulses, regular rate and rhythm Gastrointestinal: nl liver, spleen, non-tender, soft Results Result Diagram: 07/11/16 0550 Results 24 hrs Laboratory Tests Test 07/14/16 17:28 07/14/16 20:10 07/15/16 05:15 07/15/16 07:26 Bedside Glucose 94 159 98 Random Vancomycin Level 14.4 Test 07/15/16 11:34 Bedside Glucose 173 Medications Medications Current Medications Diagnostic Test (Pha) (Accucheck) 1 ea 02 XX Last administered on 07/11/16t 02: 23; Admin Dose 1 EA; Start 07/09/16 at 02:00 Acetaminophen (Tylenol Tab) 650 mg Q6H PRN PO PAIN LEVEL 1-3 OR FEVER; Start at 19:30 Acetaminophen/ Hydrocodone Bitart ([place] (5/325)) 1 tab Q6H PRN PO MODERATE PAIN LEVEL 4-6; Start 07/08/16 at 19:30 Docusate Sodium (Colace) 100 mg Q12H PRN PO CONSTIPATION; Start 07/08/16 at 19: 30 Heparin Sodium (Porcine) (Heparin (5000 Units/0.5 ml)) 5,000 unit Q8 SC Last administered on 07/15/16 06:04; Admin Dose 5,000 UNIT; Start 07/08/16 at 22:00 Miscellaneous Information 1 ea NOTE XX ; Start 07/08/16 at 19:30 Glucose (Glutose) 15 gm Q15M PRN PO DECREASED GLUCOSE; Start 07/08/16 at 19:30 Glucose (Glutose) 22.5 gm Q15M PRN PO DECREASED GLUCOSE; Start 07/08/16 at 19: 30 Dextrose (D50w Syringe) 25 ml Q15M PRN IV DECREASED GLUCOSE; Start 07/08/16 at 19:30 Dextrose (D50w Syringe) 50 ml Q15M PRN IV DECREASED GLUCOSE; Start 07/08/16 at 19:30 Glucagon (Glucagen) 1 mg Q15M PRN IM DECREASED GLUCOSE; Start 07/08/16 at 19:30 Glucose (Glutose) 15 gm Q15M PRN BUCCAL DECREASED GLUCOSE; Start 07/08/16 at 19 :30 Collagenase (Santyl) 1 applic DAILY TOP Last administered on 07/10/16 08:33; Admin Dose 1 APPLIC; Start 07/09/16 at 09:00 Oxycodone/ Acetaminophen (Percocet (5/ 325)) 1 tab Q4H PRN PO PAIN; Start 07/11 at 10:30 Insulin Human NPH (Humulin N) 20 unit HS SC Last administered on 07/14/16 21: 10; Admin Dose 20 UNIT; Start 07/11/16 at 21:00 Famotidine 20 mg 20 mg DAILY PO Last administered on 07/15/16 08:30; Admin Dose 20 MG; Start 07/14/16 at 09:00 Vancomycin HCl/ Sodium Chloride (Vancocin/NS) 250 ml @ 83.333 mls/ hr Q96H IVPB ; Start 07/15/16 at 12:00 LORIN BARAHONA MD Jul 15, 2016 17:09
--- NOTE | 2016-07-15 17:10 | PDOCDIS ---
Discharge Instructions DIAGNOSIS Discharge Diagnosis: Diabetic foot ulcer with osteomyelitis; end-stage renal disease; DM 2 CONDITION Patient Condition: Good HOME CARE INSTRUCTIONS: Special Diet: 1800 ada,renal ACTIVITY: Activity Restrictions: Slowly Increase Activity FOLLOW UP/APPOINTMENTS Appointments Continue with routine outpatient hemodialysis; follow-up with podiatry both Dr. Kramer, and Dr. Carrillo. LORIN BARAHONA MD Jul 15, 2016 17:10
[2016-07-15] MEDS ORDERED: NPH,100V SC (17:14)
[2016-07-15] MEDS ORDERED: CALC667C PO (17:14)
[2016-07-15] MEDS ORDERED: SS SC (17:14)
[2016-07-15] MEDS ORDERED: HYDR-3498 PO (17:14)
[2016-07-15] MEDS ORDERED: CALC300T5 PO (17:14)
[2016-07-15] MEDS: COLLAGENASE 30 GM TUBE TOP SCH (18:30)
[2016-07-15] MEDS ORDERED: NPH, HUMAN INSULIN ISOPHANE 3ML VIAL SC SCH (21:00)
[2016-07-16] MEDS: ACCUCHECK XX SCH (01:55)
[2016-07-16] MEDS: HEPARIN 5,000 UNIT/0.5 ML SYG SC SCH (05:43)
--- NOTE | 2016-07-16 08:05 | DS ---
Date/Time of Note Date/Time of Note DATE: 07/16/16 TIME: 08:01 Discharge Summary Admission/Discharge Info Admit Date/Time Jul 08, 2016 at 16:25 Discharge Date/Time 07/16/2016 Final Diagnosis Right foot osteomyelitis; due to strep; diabetes mellitus type 2; morbid obesity ; end-stage renal disease on hemodialysis; history of West Nile virus encephalitis 2010; essential hypertension; diabetic peripheral neuropathy. Patient Condition: Good Consults Podiatry; infectious disease Procedures Operation Performed Extensive surgical debridement of right foot chronic open wound to bleeding tissue Bone culture base of fifth metatarsal right foot Lower extremity arterial Doppler study Hx of Present Illness Oma 56-year-old male patient of Dr. Esparza, with end- stage renal disease on hemodialysis 4 days a week; who developed a foot wound. This had been being treated as an outpatient however it became more worrisome looking and he was seen at the [facility] today. There he had a long sinus tract and because this he is admitted for debridement and excision with possible bone biopsy to rule out osteomyelitis. He did receive a dosage of vancomycin today during dialysis. Please note some of his medical care has been affected by issues of finances Hospital Course Thank you very much for involving me in the care of this patient. As you very well know this is a pleasant 56-year-old male patient who has been suffering with infection in his right foot with a chronic open wound that has been treated in the past by his customer specialist. His foot doctor referred the patient to the amputation prevention center where he was fully evaluated and was found to have cellulitis of the right foot chronic open wound and possible osteomyelitis. Patient was recommended to be admitted to the hospital for IV antibiotics and surgical management. Patient was admitted to the hospital and I was consulted for evaluation and further care. Patient reports minimal discomfort and pain in the right foot and states that he has neuropathy and most of the time he has no sensation. Patient states that he has been trying to close his wound and has been doing bandages as directed by his foot doctor. Patient denies fever, chills, nausea or vomiting. Is brought into the hospital and placed on intravenous antibiotics including vancomycin. His cellulitis improved and he was taken to the OR for operative debridement after the foot had calmed down. Cultures of the bone grew out strep. Because this is discharged home on IV antibiotic therapy. Specifically will be receiving vancomycin during his dialysis once a week for total of 6-[address] weeks. The storehouse clerk Dr. Esparza is informed and involved. Patient is stable for discharge she is competent for medical decisions he has no known committable disease this is rehabilitation potential is good. Home Meds Active Scripts Insulin Human Regular (Novolin-R U-100) 100 Unit/Ml Soln, 6 UNITS SC AC MEALS for 30 Days, EA 2 Refills Prov:LORIN BARAHONA MD 07/15/16 Hydrocodone Bit-Acetaminophen (Hydrocodone Bit-APAP) 5-325MG Tablet, 1 TAB PO Q6H Y for MODERATE PAIN LEVEL 4-6 for 14 Days, TAB Prov:LORIN BARAHONA MD 07/15/16 Insulin NPH Human Isophane (Humulin N) 100 Unit/1 Ml Vial, 32 UNIT SC HS for 30 Days, VIAL 2 Refills Prov:LORIN BARAHONA MD 07/15/16 Calcium Carbonate (Tums) 300 Mg Tab.chew, 750 MG PO AC MEALS for 30 Days, TAB.CHEW Prov:LORIN BARAHONA MD 07/15/16 Calcium Acetate* (Calcium Acetate*) 667 Mg Capsule, 667 MG PO WITH MEALS for 30 Days, CAP 1 Refill Prov:LORIN BARAHONA MD 07/15/16 Discontinued Reported Medications Insulin Lispro (Humalog Kwikpen) 200 Unit/1 Ml Insuln.pen, 25 UNIT SQ BID, EA 07/08/16 Follow-up Plan Podiatry in 1-2 weeks hemodialysis as per routine schedule and I will assume care of primary care physician as an outpatient starting in 2 weeks Pending Labs Laboratory Tests Test 07/15/16 11:34 07/15/16 17:38 07/15/16 20:06 07/15/16 21:30 Bedside Glucose 173mg/dL (70-220) 133mg/dL (70-220) 191mg/dL (70-220) 201mg/dL (70-220) Test 07/16/16 01:49 Bedside Glucose 151mg/dL (70-220) LORIN BARAHONA MD Jul 16, 2016 08:05
== END 2016-07-16 08:05 | disposition home or self-care (01) | DRG 629 ==
LOC: PP2 16:25
PROVIDERS: ADMIT Internal Medicine; ATTEND Internal Medicine
PROC: 5A1D60Z (ICD-10-PCS; 2016-07-09)
PROC: 0QBN0ZZ Excision of Right Metatarsal, Open Approach (ICD-10-PCS; principal; 2016-07-11 09:00)
DX: E11.621 Type 2 diabetes mellitus with foot ulcer (principal); M86.171 Other acute osteomyelitis, right ankle and foot; I12.0 Hypertensive chronic kidney disease with stage 5 chronic kidney disease or end stage renal disease; E11.21 Type 2 diabetes mellitus with diabetic nephropathy; N18.6 End stage renal disease; L03.115 Cellulitis of right lower limb; Z68.43 Body mass index [BMI] 50.0-59.9, adult; E11.69 Type 2 diabetes mellitus with other specified complication; E11.22 Type 2 diabetes mellitus with diabetic chronic kidney disease; E11.42 Type 2 diabetes mellitus with diabetic polyneuropathy; E11.628 Type 2 diabetes mellitus with other skin complications; E66.01 Morbid (severe) obesity due to excess calories; E83.39 Other disorders of phosphorus metabolism; L97.514 Non-pressure chronic ulcer of other part of right foot with necrosis of bone; E11.51 Type 2 diabetes mellitus with diabetic peripheral angiopathy without gangrene; B95.1 Streptococcus, group B, as the cause of diseases classified elsewhere; D63.8 Anemia in other chronic diseases classified elsewhere; I87.8 Other specified disorders of veins; Z99.2 Dependence on renal dialysis; Z79.4 Long term (current) use of insulin
CPT/HCPCS: 71020; 73630; 80048; 80053; 80202; 81001; 81003; 82962; 83036; 84100; 84443; 85025; 85610; 85651; 85730; 86140; 87040; 87070; 87075; 87102; 87116; 88304; 90935; 93005; 93922; J0690; J1815; J2250; J2370; J2405; J2543; J2765; J3010; J3370; J7040; J7050; L3260-LT